=== PATIENT | male | born 1945 | race Caucasian/White ===

== ENCOUNTER 2018-01-01 03:59 | Observation (INO) | payer BC, MEDICARE ==
--- NOTE | 2018-01-01 04:28 | ERNOTE ---
Trauma/Assault HPI - General Stated Complaint: FALL Time Seen by Provider: 01/01/18 04:07 Source: patient Exam Limitations: clinical condition - Immun/Allergies/Home Medications Immunizations: IMMUNIZATION HX Immunizations Up to Date Yes History of Influenza Vaccine Yes Hx Pneumococcal Vaccination Yes Allergies/Adverse Reactions: Allergies mometasone furoate [From Nasonex] Adverse Reaction (Mild, Verified 01/01/18 06: 20) increased eye pressure acetaminophen [From Percocet] Adverse Reaction (Verified 01/01/18 06:20) oxycodone [From Percocet] Adverse Reaction (Verified 01/01/18 06:20) Steroids Adverse Reaction (Uncoded 01/01/18 06:20) "Puts me into AFIB" Home Medications: HOME MEDICATIONS Metoprolol Tartrate [Lopressor] 50 mg PO BID 02/24/12 [Last Taken Unknown] Atorvastatin Calcium [Lipitor] 40 mg PO HS 05/15/16 [Last Taken Unknown] albuterol sulfate 2.5 mg/3 mL (0.083 %) solution for nebulization 2.5 mg IH Q4H 10/09/17 [Last Taken Unknown] albuterol sulfate HFA 90 mcg/actuation aerosol inhaler 1 puff IH Q4H g [Last Taken Unknown] alprazolam 0.25 mg tablet See Label Instructions PO .COMPLEX 10/09/17 [Last Taken Unknown] apixaban 5 mg tablet 5 mg PO BID tab 10/09/17 [Last Taken Unknown] bumetanide 1 mg tablet See Label Instructions PO .COMPLEX tab 10/09/17 [Last Taken Unknown] cholecalciferol (vitamin D3) 5,000 unit capsule 5,000 unit PO DAILY 10/09/17 [ Last Taken Unknown] ipratropium-albuterol 0.5 mg-3 mg(2.5 mg base)/3 mL nebulization soln 3 ml IH Q8H 10/09/17 [Last Taken Unknown] montelukast 10 mg tablet 10 mg PO QPM 10/09/17 [Last Taken Unknown] tiotropium 2.5 mcg-olodaterol 2.5 mcg/actuation mist for inhalation 2 puff IH DAILY 10/09/17 [Last Taken Unknown] nebulizer accessories kit See Dose Instructions .ROUTE .MEDSUPPLY #1 ea [Last Taken Unknown] Albuterol Sulfate [Proair Hfa] 1 - 2 puff IH Q4H PRN 12/10/17 [Last Taken Unknown] Metolazone [Zaroxolyn] 2.5 mg PO DAILY 12/10/17 [Last Taken Unknown] Potassium Chloride [K-Dur] 20 meq PO TID 12/10/17 [Last Taken Unknown] azithromycin 250 mg tablet See Label Instructions PO .COMPLEX #6 tab 12/29/17 [ Last Taken Unknown] - History of Present Illness Narrative: Pt states he got up to go to the bathroom. He leaned over and hit his head on the wall then stood back up and then found himself on the bathroom floor. He states he has head and right rib pain Location Occurred: Reports: home Pain Location: Reports: head, back - upper Method of Injury: Reports: fall Severity: moderate Modifying Factors - (Improves): Reports: immobilization Modifying Factors - (Worsens): Reports: movement Loss of Consciousness: Reports: unsure. Denies: remembers the event Associated Symptoms - Trauma: Denies: headache, confusion Review of Systems - Review of Systems Constitutional: Absent: recent illness EYE: Present: other - blind in left eye for 45 years. Absent: vision changes ENT: Absent: ear discharge, nose congestion, nasal drainage Respiratory: Absent: shortness of breath Cardiology: Present: See HPI, chest pain Gastrointestinal/Abdominal: Absent: nausea Musculoskeletal: Present: back pain - ribs Neurological: Absent: dizziness/light-headedness, numbness, tingling Hematologic/Lymphatic: Present: easy bruising, easy bleeding Medical History (Last Reviewed 01/01/18 @ 04:26 by Willie Tamayo DO) COPD (chronic obstructive pulmonary disease) (Chronic) Hypokalemia (Chronic) RONQUILLO (dyspnea on exertion) (Chronic) Neck pain (Chronic) Atrial fibrillation Blindness, legal CAD (coronary artery disease) CHF (congestive heart failure) COPD (chronic obstructive pulmonary disease) Carpal tunnel syndrome DVT (deep venous thrombosis) Diverticulitis Early satiety Hyperlipidemia Hypertension Hypovitaminosis D Myocardial infarction Prostate neoplasm Sleep apnea Spondylosis Stenosis of right subclavian artery Subclavian arterial stenosis Surgical History: Surgical History (Last Reviewed 01/01/18 @ 04:11 by Ludmila Lamb) H/O colonoscopy H/O nasal septoplasty H/O prostatectomy H/O shoulder surgery History of arthroscopic procedure on shoulder History of cardioversion History of carpal tunnel release History of colon resection Hx of radical excision of skin lesion S/P triple vessel bypass excision of sebacous cyst hemorrhoidal banding incision and debridement Family History: Family History (Last Reviewed 01/01/18 @ 04:11 by Ludmila Lamb) Brother Diabetes Father Black lung Mother Diabetes Heart disease Sister No problems noted. Social History: Preferred Language Pashto Smoking Status Former smoker Abuse History No History of abuse Psych History No pertinent hx Alcohol Use occasionally Drug Use none Physical Exam - Physical Exam General Appearance: Present: wd/wn, alert, no apparent distress Head Exam: Present: contusions - right methodist Eye Exam: PERRL: right, Abnormal pupil: left - due to old injury Ears, Nose, Throat: Present: normal ENT inspection Neck: Present: normal inspection, nontender Respiratory: Present: no respiratory distress, normal breath sounds, no accessory muscle use, lungs clear, chest tenderness - right Cardiovascular/Chest: Present: regular rate, rhythm, no murmur Gastrointestinal/Abdominal: Present: normal bowel sounds, nontender, nondistended, soft Back Exam: Present: normal inspection, no vertebral tenderness Extremity Exam: Present: normal inspection, normal range of motion, no edema Neurological Exam: Present: alert, oriented, normal mood/affect, no motor/ sensory deficits Skin Exam: Present: normal color, warm/dry Lymphatic Exam: Present: no adenopathy Detailed Trauma Exam Best Eye Response ([place]): (4) open spontaneously Best Verbal Response ([place]): (5) oriented Best Motor Response ([place]): (6) obeys commands [place] Total: 15 - C-Spine cleared by: Neg C-spine CT & exam - T, L-Spine cleared by: Neg hx and exam - Long Board: Back visualized ED Progress - Vital Signs Vital Signs: Vital Signs 01/01/18 04:05 Temperature 36 C Pulse Rate 82 Respiratory Rate 18 Blood Pressure 122/83 O2 Sat by Pulse Oximetry 93 - EKG EKG: atrial fibrillation, RBBB - incomplete, nonspecific ST T wave changes - X-Ray X-Ray #1 X-Ray: chest Interpretation: Interp. by wy X-ray Comments: Small pneumothorax seen at the apex of the right lung. No infiltrate or effusion noted. X-Ray #2 X-Ray: ribs Interpretation: Interp. by me X-ray Comments: Moderately displaced rib fractures of the lateral right 6,7,8th ribs. - CT/Ultrasound CT/Ultrasound Narrative: CT c-spine: no acute c-spine fracture multilevel degenerative disease CT head without: artifact due to motion. chronic small vessel ischemic changes asymmetric prominence of the right transverse sinus motion limited exam without definite evidence for acute intracranial hemorrhage or mass effect. CT chest: Rib fractures right 6,7,8 small right pneumothorax Trace right pleural fluid, possibly hemorrhage - Progress/Reassessment Chief Complaint: Fall Progress Note-Subjective: 01/01/18 06:[address] Curiel and he agrees to come see and evaluate for chest tube. 01/01/18 07:07 Dr. Curiel has seen the patient and we reviewed the CT and X-rays. Dr. Curiel will admit the patient for observation. Departure Clinical Impression: Ribs, multiple fractures Qualifiers: Encounter type: initial encounter Fracture type: closed Laterality: right Qualified Code(s): S22.41XA - Multiple fractures of ribs, right side, initial encounter for closed fracture - Departure Disposition: Still a patient Condition: Good Referrals: Bello Ortez MD [Primary Care Provider] - Critical Care Time - Critical Care Critical Time Spent:: No
[2018-01-01] MEDS ORDERED: MORPHINE SULFATE 2 MG/ML DISP.SYRIN IV ONE (05:01)
[2018-01-01] MEDS ORDERED: ONDANSETRON HCL/PF 2 MG/ML VIAL IV ONE (05:01)
[2018-01-01] MEDS ORDERED: ONDANSETRON HCL/PF 2 MG/ML VIAL ONE (05:02)
[2018-01-01] MEDS ORDERED: MORPHINE SULFATE 4 MG/ML SYRG ONE (05:02)
[2018-01-01] MEDS ORDERED: HYDROmorphone HCL 1 MG/ML DISP.SYRIN IV ONE ×2 (06:06→06:42)
[2018-01-01] MEDS ORDERED: HYDROmorphone HCL 1 MG/ML DISP.SYRIN ONE (06:12)
[2018-01-01] MEDS ORDERED: ALBUTEROL SULFATE IH PRN (07:23)
[2018-01-01] MEDS ORDERED: KETOROLAC TROMETHAMINE 15 MG/ML VIAL IV ONE (07:29)
[2018-01-01] MEDS ORDERED: ALBUTEROL SULFATE 2.5 MG IH SCH (07:30)
[2018-01-01] MEDS: ALBUTEROL SULFATE 2.5 MG/0.5 ML VIAL.NEB IH SCH ×3 (08:29→15:04)
[2018-01-01] MEDS: ALBUTEROL SULFATE/IPRATROPIUM 3 ML NEBU IH SCH ×2 (08:29→15:02)
[2018-01-01] MEDS: POTASSIUM CHLORIDE 20 MEQ TABLET.SA PO SCH ×2 (08:38→13:39)
[2018-01-01] MEDS ORDERED: APIXABAN 5 MG TABLET PO SCH (09:00)
[2018-01-01] MEDS ORDERED: AZITHROMYCIN 250 MG TABLET PO SCH (09:00)
[2018-01-01] MEDS ORDERED: METOPROLOL TARTRATE 50 MG TABLET PO SCH (09:00)
[2018-01-01] MEDS ORDERED: METOLAZONE 2.5 MG TABLET PO SCH (09:00)
[2018-01-01] MEDS ORDERED: CHOLECALCIFEROL 5,000 UNIT TABLET PO SCH (09:00)
[2018-01-01] MEDS ORDERED: NON-FORMULARY 1 DOSE DOSE (Tiotropium Br/Olodaterol Hcl [Stiolto Respimat Inhal Spray] 2 P IH SCH (09:00)
[2018-01-01] MEDS ORDERED: BUMETANIDE 1 MG TABLET PO SCH ×2 (09:00→17:00)
--- NOTE | 2018-01-01 16:05 | HP ---
Chief Complaint - Chief Complaint Date of Service: 01/01/18 Time of Service: 07:30 Chief Complaint: Short of breath after fall History of Present Illness: He tripped and fell at 2AM and struck his right chest. He has rib pain and is a little more short of breath. CXR and CT scan teresa fractured right ribs and a small pneumothorax. Medical History (Last Reviewed 01/01/18 @ 15:55 by Ora Curiel MD) COPD (chronic obstructive pulmonary disease) (Chronic) Hypokalemia (Chronic) RONQUILLO (dyspnea on exertion) (Chronic) Neck pain (Chronic) Atrial fibrillation Blindness, legal CAD (coronary artery disease) CHF (congestive heart failure) COPD (chronic obstructive pulmonary disease) Carpal tunnel syndrome DVT (deep venous thrombosis) Diverticulitis Early satiety Hyperlipidemia Hypertension Hypovitaminosis D Myocardial infarction Prostate neoplasm Sleep apnea Spondylosis Stenosis of right subclavian artery Subclavian arterial stenosis Surgical History: Surgical History (Last Reviewed 01/01/18 @ 15:55 by Ora Curiel MD) H/O colonoscopy H/O nasal septoplasty H/O prostatectomy H/O shoulder surgery History of arthroscopic procedure on shoulder History of cardioversion History of carpal tunnel release History of colon resection Hx of radical excision of skin lesion S/P triple vessel bypass excision of sebacous cyst hemorrhoidal banding incision and debridement Family History: Family History (Last Reviewed 01/01/18 @ 15:55 by Ora Curiel MD) Brother Diabetes Father Black lung Mother Diabetes Heart disease Sister No problems noted. 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 Smoking Status Former smoker Have you smoked in the past 12 No months Abuse History No History of abuse Psych History No pertinent hx Alcohol Use occasionally Drug Use none Review Of Systems (GEN) - Review of Systems Generalized/Overall Review: Present: Fatigue EENTM: Present: No Symptoms Reported Respiratory: Present: Shortness of Breath, Other - rib pain Cardiac: Absent: Palpitations, Syncope Abdominal: Present: No Symptoms Reported Genitourinary: Present: No Symptoms Reported Musculoskeletal: Present: No Symptoms Reported Neurological: Present: No Symptoms Reported Skin: Present: No Symptoms Reported Immunizations: IMMUNIZATION HX Immunizations Up to Date Yes History of Influenza Vaccine Yes Hx Pneumococcal Vaccination Yes Allergies/Adverse Reactions: Allergies Allergy/AdvReac Type Severity Reaction Status Date / Time mometasone furoate AdvReac Mild increased Verified 01/01/18 06:20 [From Nasonex] eye pressure acetaminophen [From Percocet] AdvReac Verified 01/01/18 09:04 oxycodone [From Percocet] AdvReac Verified 01/01/18 09:04 Home Medications: HOME MEDICATIONS Metoprolol Tartrate [Lopressor] 50 mg PO BID 02/24/12 [Last Taken Unknown] Atorvastatin Calcium [Lipitor] 40 mg PO HS 05/15/16 [Last Taken Unknown] albuterol sulfate 2.5 mg/3 mL (0.083 %) solution for nebulization 2.5 mg IH Q4H PRN 10/09/17 [Last Taken Unknown] alprazolam 0.25 mg tablet 0.25 - 0.5 mg PO HS PRN 10/09/17 [Last Taken Unknown] apixaban 5 mg tablet 5 mg PO BID tab 10/09/17 [Last Taken Unknown] bumetanide 1 mg tablet 3 mg PO 0530,1200 tab 10/09/17 [Last Taken Unknown] cholecalciferol (vitamin D3) 5,000 unit capsule 5,000 unit PO DAILY 10/09/17 [ Last Taken Unknown] ipratropium-albuterol 0.5 mg-3 mg(2.5 mg base)/3 mL nebulization soln 3 ml IH TID PRN 10/09/17 [Last Taken Unknown] montelukast 10 mg tablet 10 mg PO QPM PRN 10/09/17 [Last Taken Unknown] tiotropium 2.5 mcg-olodaterol 2.5 mcg/actuation mist for inhalation 2 puff IH DAILY 10/09/17 [Last Taken Unknown] nebulizer accessories kit See Dose Instructions .ROUTE .MEDSUPPLY #1 ea [Last Taken Unknown] Albuterol Sulfate [Proair Hfa] 1 - 2 puff IH Q4H PRN 12/10/17 [Last Taken Unknown] Metolazone [Zaroxolyn] 2.5 mg PO DAILY PRN 12/10/17 [Last Taken Unknown] Potassium Chloride [K-Dur] 20 meq PO TID 12/10/17 [Last Taken Unknown] azithromycin 250 mg tablet See Label Instructions PO .COMPLEX #6 tab 12/29/17 [ Last Taken Unknown] Exam - Exam Vital Signs: Vital Signs - Last Taken Selected Entries 01/01/18 07:17 Pulse Rate 88 Respiratory Rate 18 Blood Pressure 112/60 Blood Pressure Mean 77 O2 Sat by Pulse Oximetry 95 Oxygen Flow Rate 2 Constitutional: Present: Alert, Oriented x3, Cooperative, Well developed, Moderate distress ENT Exam: Present: normal ENT inspection, hearing grossly normal Eye Exam: bilateral eye: normal inspection Neck: Present: normal inspection Back Exam: Present: normal inspection Respiratory: Present: lungs clear, other - Increased AP diamter and bronchovesicular breath sounds, no crepitus tender over right lateral ribs Abdomen: Present: soft, nontender /Rectal: Present: Exam deferred Extremity: Present: normal range of motion, normal inspection Skin Exam: Present: normal color, other - echymosis Neurologic: 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: 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 nml as tested, no motor/sensory deficits Appearance: Present: appropriate appearance, appropriate insight Eye contact: Present: cooperative, good eye contact Thoughts: Present: normal thought pattern Diagnostic Studies: CXR and CT show right rib fractures and small pneumothorax Assessment/Plan - Assessment/Plan (1) Ribs, multiple fractures Problem: Acute Qualifiers: Encounter type: initial encounter Fracture type: closed Laterality: right Qualified Code(s): S22.41XA - Multiple fractures of ribs, right side, initial encounter for closed fracture (2) COPD (chronic obstructive pulmonary disease) Problem: Chronic Qualifiers: (3) Pneumothorax on right Assessment: He is on eloquis and this complicates pippa aspiration or chest tube placement Needs observation to ensure that pneumothorax does not progress Will monitor closely and recheck CXR at noon. Continue usual meds. Clear liquids Problem: Acute
--- NOTE | 2018-01-01 16:11 | DS ---
(1) Ribs, multiple fractures Problem: Acute Qualifiers: Encounter type: initial encounter Fracture type: closed Laterality: right Qualified Code(s): S22.41XA - Multiple fractures of ribs, right side, initial encounter for closed fracture (2) COPD (chronic obstructive pulmonary disease) Problem: Chronic Qualifiers: (3) Pneumothorax on right Problem: Acute Description of Stay: Monitored closely and 02 weaned successfully. Repeat CXR showed decrease in size of pneumothorax and the patient felt much better. Procedures Performed: none Discharge Location: Home Disposition: Home self-care Condition: Good Face to Face Encounter completed per [facility] Guidelines: Yes Discharge Activity: Activity as tolerated Discharge Diet: General/regular food Referrals: Bello Ortez MD [Primary Care Provider] - Complete Home Medications List: Complete Home Medication List: Metoprolol Tartrate [Lopressor] 50 mg PO BID 02/24/12 Atorvastatin Calcium [Lipitor] 40 mg PO HS 05/15/16 albuterol sulfate 2.5 mg/3 mL (0.083 %) solution for nebulization 2.5 mg IH Q4H PRN 10/09/17 alprazolam 0.25 mg tablet 0.25 - 0.5 mg PO HS PRN 10/09/17 apixaban 5 mg tablet 5 mg PO BID tab 10/09/17 bumetanide 1 mg tablet 3 mg PO 0530,1200 tab 10/09/17 cholecalciferol (vitamin D3) 5,000 unit capsule 5,000 unit PO DAILY 10/09/17 ipratropium-albuterol 0.5 mg-3 mg(2.5 mg base)/3 mL nebulization soln 3 ml IH TID PRN 10/09/17 montelukast 10 mg tablet 10 mg PO QPM PRN 10/09/17 tiotropium 2.5 mcg-olodaterol 2.5 mcg/actuation mist for inhalation 2 puff IH DAILY 10/09/17 nebulizer accessories kit See Dose Instructions .ROUTE .MEDSUPPLY #1 ea Albuterol Sulfate [Proair Hfa] 1 - 2 puff IH Q4H PRN 12/10/17 Metolazone [Zaroxolyn] 2.5 mg PO DAILY PRN 12/10/17 Potassium Chloride [K-Dur] 20 meq PO TID 12/10/17 azithromycin 250 mg tablet See Label Instructions PO .COMPLEX #6 tab 12/29/17
[2018-01-01 16:37] VITALS: BP 120/62
[2018-01-01] MEDS ORDERED: MONTELUKAST SODIUM 10 MG TABLET PO SCH (17:00)
[2018-01-01] MEDS ORDERED: ROSUVASTATIN CALCIUM 20 MG TABLET PO SCH (21:00)
[2018-01-01] MEDS ORDERED: ALPRAZolam 0.25 MG TABLET PO SCH (21:00)
== END 2018-01-01 17:00 | disposition home or self-care (01) ==
LOC: ER 03:59 → MS 03:59
PROVIDERS: ADMIT Surgery; ATTEND Surgery
DX: S27.0XXA Traumatic pneumothorax, initial encounter; I48.91 Unspecified atrial fibrillation; S22.49XA Multiple fractures of ribs, unspecified side, initial encounter for closed fracture; Z87.891 Personal history of nicotine dependence; J44.9 Chronic obstructive pulmonary disease, unspecified
CPT/HCPCS: 70450; 71010; 71045; 71100; 71250; 72125; 93005; 94640; 94664; 96374; 96375; 96376; 99284; G0378; J2405

== ENCOUNTER 2018-02-08 17:50 | Observation (INO) | payer BC, MEDICARE ==
--- NOTE | 2018-02-08 18:07 | ERNOTE ---
Medical Problem HPI - Narrative Date of Service: 02/08/18 - General Chief Complaint: General Assessment Time Seen by Provider: 02/08/18 18:02 Source: patient Exam Limitations: no limitations - Immun/Allergies/Home Medications Immunizations: IMMUNIZATION HX Immunizations Up to Date Yes History of Influenza Vaccine Yes Hx Pneumococcal Vaccination Yes Allergies/Adverse Reactions: Allergies mometasone furoate [From Nasonex] Adverse Reaction (Mild, Verified 02/08/18 18:01) increased eye pressure acetaminophen [From Percocet] Adverse Reaction (Verified 02/08/18 18:01) makes him "looney" makes him "looney" oxycodone [From Percocet] Adverse Reaction (Verified 02/08/18 18:01) makes him "looney" makes him "looney" Home Medications: HOME MEDICATIONS Atorvastatin Calcium [Lipitor] 40 mg PO HS 05/15/16 [Last Taken Unknown] albuterol sulfate 2.5 mg/3 mL (0.083 %) solution for nebulization 2.5 mg IH Q4H PRN 10/09/17 [Last Taken Unknown] alprazolam 0.25 mg tablet 0.25 - 0.5 mg PO HS PRN 10/09/17 [Last Taken Unknown] apixaban 5 mg tablet 5 mg PO BID tab 10/09/17 [Last Taken 01/09/18] bumetanide 1 mg tablet 3 mg PO 0530,1200 tab 10/09/17 [Last Taken Unknown] cholecalciferol (vitamin D3) 5,000 unit capsule 5,000 unit PO DAILY 10/09/17 [Last Taken Unknown] ipratropium-albuterol 0.5 mg-3 mg(2.5 mg base)/3 mL nebulization soln 3 ml IH TID PRN 10/09/17 [Last Taken Unknown] tiotropium 2.5 mcg-olodaterol 2.5 mcg/actuation mist for inhalation 2 puff IH DAILY 10/09/17 [Last Taken Unknown] nebulizer accessories kit See Dose Instructions .ROUTE .MEDSUPPLY #1 ea 11/21/17 [Last Taken Unknown] Albuterol Sulfate [Proair Hfa] 1 - 2 puff IH Q4H PRN 12/10/17 [Last Taken Unknown] Metolazone [Zaroxolyn] 2.5 mg PO DAILY PRN 12/10/17 [Last Taken Unknown] Potassium Chloride [K-Dur] 20 meq PO TID 12/10/17 [Last Taken Unknown] docusate sodium 100 mg capsule 100 mg PO BID 01/13/18 [Last Taken Unknown] oxycodone-acetaminophen 5 mg-325 mg tablet 1 tab PO Q4H PRN #60 tab 01/13/18 [Last Taken Unknown] metoprolol tartrate 50 mg tablet 25 mg PO BID tab 02/03/18 [Last Taken Unknown] - Pain Score Pain Score #1 Pain Score: 4 - History of Present History Narrative: The patient is a 72 year old male who presents for right lateral chest pain and dyspnea which has been worse for 1 day. There are no associated symptoms. The patient reports pain to right lateral chest, 4/10. There are no alleviating factors. There are aggravating factors of exertion. Previous treatments have included: nebulizer treatments without improvement. The past medical history includes: right rib fractures, Afib, CAD, CHF, COPD, DVT, HTN, HLD, sleep apnea and hypokalemia. The social history is negative. The patient has had no ill contacts. Patient states that he had Duoneb [employer] without improvement. Patient was seen approximately 5 weeks ago for right rib fractures due to fall. Review of Systems - Review of Systems Constitutional: Present: fatigue. Absent: fever EYE: Present: no symptoms reported ENT: Present: sore throat. Absent: ear pain, nasal drainage Respiratory: Present: shortness of breath, cough Cardiology: Present: chest pain - chest wall pain Gastrointestinal/Abdominal: Present: diarrhea, abdominal pain. Absent: nausea, vomiting Genitourinary: Present: no symptoms reported Musculoskeletal: Present: no symptoms reported Skin: Present: no symptoms reported Neurological: Present: no symptoms reported Endocrine: Present: no symptoms reported Hematologic/Lymphatic: Present: no symptoms reported Psych: Present: no symptoms reported All Other Systems: All systems neg except as marked Medical History (Last Reviewed 02/08/18 @ 18:12 by TRAN Rivero) COPD (chronic obstructive pulmonary disease) (Chronic) Hypokalemia (Chronic) RONQUILLO (dyspnea on exertion) (Chronic) Neck pain (Chronic) Atrial fibrillation Blindness, legal left eye CAD (coronary artery disease) CHF (congestive heart failure) COPD (chronic obstructive pulmonary disease) Carpal tunnel syndrome DVT (deep venous thrombosis) Diverticulitis Early satiety Hyperlipidemia Hypertension Hypovitaminosis D Myocardial infarction Pneumothorax Prostate neoplasm Rib fracture Sleep apnea Spondylosis Stenosis of right subclavian artery Subclavian arterial stenosis Surgical History: Surgical History (Last Reviewed 02/08/18 @ 18:13 by TRAN Rivero) H/O colonoscopy H/O nasal septoplasty H/O prostatectomy H/O shoulder surgery History of arthroscopic procedure on shoulder History of cardioversion History of carpal tunnel release History of colon resection Hx of radical excision of skin lesion S/P triple vessel bypass excision of sebacous cyst hemorrhoidal banding incision and debridement r/t colon surgery H/O sigmoidoscopy Onset Date: ~01/09/18 Dr. Curiel Family History: Family History (Last Reviewed 02/08/18 @ 18:13 by TRAN Rivero) Brother Diabetes Father Black lung Mother Diabetes Heart disease Sister No problems noted. Social History: Preferred Language Syriac Smoking Status Former smoker Abuse History No History of abuse Psych History No pertinent hx Alcohol Use none Drug Use none (Last Updated 02/05/18 @ 09:14 by Ora Curiel MD) No Social History Section defined Physical Exam - Physical Exam General Appearance: Present: wd/wn, alert, mild distress, irritable Head Exam: Present: normal inspection Ears, Nose, Throat: Present: normal ENT inspection, pharyngeal erythema Neck: Present: normal inspection, lymphadenopathy (L) - anterior chain tenderness Respiratory: Present: chest tenderness - right lateral and anterior, decreased breath sounds, wheezing - expiratory to left mid and lower intermittent. Absent: accessory muscle use Cardiovascular/Chest: Present: no murmur, irregularly irregular Gastrointestinal/Abdominal: Present: normal bowel sounds, soft, distended Neurological Exam: Present: alert, oriented, normal mood/affect Skin Exam: Present: normal color, warm/dry ED Progress - Date and Time Seen: Date and Time: Pain medication offered to patient during ER stay and patient refuses due to difficulties with constipation. Care discussed with patient and . Discussed care with and plan for observation admission. Discussed abdominal distention with as he has seen patient during inpatient stay as well as follow up in clinic for colonic distention. Will initiate treatment for COPD exacerbation while monitoring due to elevated DDimer. 02/08/18 20:55 - Results and Orders Patient's Lab Results:: I have reviewed the patient's lab results. - Vital Signs Patient's Vital Signs:: I have reviewed the patient's vital signs. Vital Signs: Vital Signs 02/08/18 17:55 Temperature 36.4 C Pulse Rate 106 H Respiratory Rate 14 Blood Pressure 102/70 O2 Sat by Pulse Oximetry 95 - EKG EKG: atrial fibrillation - chronic EKG read: Reviewed by me - X-Ray X-Ray #1 X-Ray: chest Interpretation: Reviewed by me X-ray Comments: X-RAY REPORT ~[id number] RAD/Chest Single View *~ Exam Date: 02/08/2018 18:28 Ordering Physician: Twila Kraus History: Rib fractures. COPD. Trouble breathing. Dyspnea. History of atrial fibrillation. Congestive heart failure. Hypertension. Technique: Single AP view of the chest obtained. Two images utilized. Comparison: 01/01/2018 Findings: Heart size and vascularity appear within normal limits. Lung garcia show no focal infiltrates or effusions on this single view. Follow-up with PA and lateral views of the chest could be helpful. IMPRESSION: NO ACUTE CARDIOPULMONARY DISEASE IDENTIFIED. Electronically signed by Froy Omer M.D.. X-Ray #2 X-Ray: abdomen Interpretation: Reviewed by me X-ray Comments: X-RAY REPORT ~[id number] RAD/Abdomen Flat W/ Upright *~ Exam Date: 02/08/2018 18:45 Ordering Physician: Twila Kraus History: Abdominal distention. Dyspnea. Technique: Supine and upright views of the abdomen obtained. A total of 5 images utilized. Comparison: 02/02/2018 Findings: There are postsurgical changes in the pelvis. There are degenerative changes and a scoliotic lumbar spine. There are postoperative changes in the upper abdomen. There is a distended transverse colon. This is unchanged to less pronounced than the previous study. No free air identified. IMPRESSION: DISTENDED TRANSVERSE COLON LESS PRONOUNCED THAN THE PREVIOUS STUDY. Electronically signed by Froy Omer M.D.. - Progress/Reassessment Chief Complaint: General Assessment Departure Clinical Impression: Chronic a-fib, Elevated d-dimer, Renal insufficiency COPD (chronic obstructive pulmonary disease) Qualifiers: COPD type: unspecified COPD Qualified Code(s): J44.9 - Chronic obstructive pulmonary disease, unspecified - Departure Disposition: Still a patient Condition: Stable
[2018-02-08] MEDS ORDERED: ALBUTEROL SULFATE 2.5 MG/0.5 ML VIAL.NEB IH ONE ×2 (18:31→18:54)
[2018-02-08 18:33] LABS: Hematocrit 47.3 % (42.0-52.0); Hemoglobin 15.8 gm/dL (13.5-18.0); Mean Cell Volume 93.8 fl (78-100); Mean Corpuscular Hemoglobin 31.3 pg (27-31); Mean Corpuscular Hgb Conc 33.4 g/dl (32-36); Mean Platelet Volume 9.4 fl (8-11.3); Neutrophil # 6.9 K/mm3 (1.3-6.0); Neutrophil % 68.3 % (42-75.0); Platelet Count 231 K/mm3 (150-450); Red Blood Count 5.04 M/mm3 (4.7-6.0); Red Cell Distribution Width 14.4 % (11.5-14.0); White Blood Count 10.1 K/mm3 (4.0-10.5)
[2018-02-08 18:54] LABS: BUN/Creatinine Ratio 9.9 (9.0-21.6); Carbon Dioxide 30.7 mmol/L (24-32.6); Potassium 4.5 mmol/L (3.4-4.6)
[2018-02-08 18:55] LABS: Albumin * 3.7 gm/dl (3.4-5.0); Anion Gap 9.8 mmol/L (6.8-13.8); Bilirubin, Total 0.4 mg/dL (0.0-1.1); Ca. Corrected For Albumin 8.6 mg/dL (8.4-10.2); Calcium * 8.7 mg/dL (7.9-10.9); Total Protein 7.2 gm/dL (6.2-8.2)
[2018-02-08] MEDS ORDERED: DOXYCYCLINE HYCLATE 100 MG TABLET PO ONE (19:39)
[2018-02-08] MEDS ORDERED: METHYLPREDNISOLONE SOD SUCC/PF 125 MG/2 ML VIAL IV ONE (19:39)
[2018-02-08] MEDS ORDERED: METHYLPREDNISOLONE SOD SUCC/PF 125 MG/2 ML VIAL ONE (19:44)
[2018-02-08] MEDS ORDERED: DOXYCYCLINE HYCLATE 100 MG TABLET ONE (19:44)
[2018-02-08] MEDS ORDERED: ALBUTEROL SULFATE/IPRATROPIUM 3 ML NEBU IH PRN ×2 (20:18→20:24)
[2018-02-08] MEDS ORDERED: ALPRAZolam 0.25 MG TABLET PO PRN (20:24)
[2018-02-08] MEDS ORDERED: METOPROLOL TARTRATE 50 MG TABLET PO SCH (21:00)
[2018-02-08] MEDS ORDERED: ALBUTEROL SULFATE 2.5 MG/0.5 ML VIAL.NEB IH PRN (21:15)
[2018-02-08] MEDS ORDERED: ROSUVASTATIN CALCIUM 20 MG TABLET PO SCH (21:30)
[2018-02-08] MEDS: DOCUSATE SODIUM 100 MG CAPSULE PO SCH (21:33)
[2018-02-08] MEDS: APIXABAN 5 MG TABLET PO SCH (21:33)
[2018-02-08] MEDS: ACETAMINOPHEN 500 MG TABLET PO PRN (22:21)
[2018-02-08] MEDS ORDERED: LIDOCAINE 1 PATCH ADH..PATCH TP ONE (22:24)
[2018-02-08] MEDS ORDERED: LIDOCAINE 1 PATCH ADH..PATCH TP SCH (22:30)
[2018-02-09] MEDS: ACETAMINOPHEN 500 MG TABLET PO PRN ×2 (04:24→10:30)
[2018-02-09 05:43] LABS: Albumin * 3.6 gm/dl (3.4-5.0); Anion Gap 12.1 mmol/L (6.8-13.8); BUN/Creatinine Ratio 10.6 (9.0-21.6); Bilirubin, Total 0.7 mg/dL (0.0-1.1); Ca. Corrected For Albumin 8.9 mg/dL (8.4-10.2); Calcium * 8.9 mg/dL (7.9-10.9); Carbon Dioxide 26.9 mmol/L (24-32.6); Total Protein 6.6 gm/dL (6.2-8.2)
--- NOTE | 2018-02-09 07:26 | HP ---
Chief Complaint - Chief Complaint Date of Service: 02/09/18 Time of Service: 07:24 Chief Complaint: Worsening SOB due to abdominal distention. History of Present Illness: Pt. is a 72yo WM with PMH significant for COPD and abdominal distension due to colon gas, was seen in clinic friday and evaluated for worsening SOB and abdominal distension. Xray at that time showed improvement from previous and so he was sent home with precautions to go to ER if sx worsened, which they did. He states his breathing issues were due to the abdominal distension, but he was worked up for other possibilities and then admitted due to concern for COPD exacerbation and possible PE due to elevated D-dimer. He does have afib and has been on eliquis for some time for this and has been compliant with taking it. He denies unilateral leg swelling, claudications or CP, F/C or productive cough or hemoptysis. He states the am that I saw him he feels well enough to go home and states he can deal with everything at home. He does not wish to have CT done, especially in light of his elevated Cr. Medical History (Last Reviewed 02/08/18 @ 23:12 by Suzie Weston RN) COPD (chronic obstructive pulmonary disease) (Chronic) Hypokalemia (Chronic) RONQUILLO (dyspnea on exertion) (Chronic) Neck pain (Chronic) Atrial fibrillation Blindness, legal left eye CAD (coronary artery disease) CHF (congestive heart failure) COPD (chronic obstructive pulmonary disease) Carpal tunnel syndrome DVT (deep venous thrombosis) Diverticulitis Early satiety Hyperlipidemia Hypertension Hypovitaminosis D Myocardial infarction Pneumothorax Prostate neoplasm Rib fracture Sleep apnea Spondylosis Stenosis of right subclavian artery Subclavian arterial stenosis Surgical History: Surgical History (Last Reviewed 02/08/18 @ 23:12 by Suzie Weston RN) H/O colonoscopy H/O nasal septoplasty H/O prostatectomy H/O shoulder surgery History of arthroscopic procedure on shoulder History of cardioversion History of carpal tunnel release History of colon resection Hx of radical excision of skin lesion S/P triple vessel bypass excision of sebacous cyst hemorrhoidal banding incision and debridement r/t colon surgery H/O sigmoidoscopy Onset Date: ~01/09/18 Dr. Curiel Family History: Family History (Last Reviewed 02/08/18 @ 23:12 by Suzie Weston RN) Brother Diabetes Father Black lung Mother Diabetes Heart disease Sister No problems noted. Social History: Patient Lives/Resources With Spouse Utilized Occupation retired Preferred Language Nicaraguan Do you have any restoration or Yes: 1st Religious cultural preference? Smoking Status Former smoker Have you smoked in the past 12 No months Do you dip or chew tobacco No Abuse History No History of abuse Psych History No pertinent hx Alcohol Use none Drug Use none (Last Updated 02/05/18 @ 09:14 by Ora Curiel MD) No Social History Section defined Review Of Systems (GEN) - Review of Systems Generalized/Overall Review: Present: Weakness, Fatigue. Absent: Chills, Fever, Malaise EENTM: Present: No Symptoms Reported Respiratory: Present: Cough, Shortness of Breath. Absent: Orthopnea, Stridor, Wheezing Cardiac: Absent: Chest Pain, Edema, Palpitations, Syncope Abdominal: Present: Nausea, Abdominal Pain, Diarrhea. Absent: Vomiting, Hematemesis, Constipation, Melena, Bright blood from rectum Genitourinary: Present: No Symptoms Reported Musculoskeletal: Present: No Symptoms Reported Neurological: Present: No Symptoms Reported Skin: Present: No Symptoms Reported Endocrine: Present: No Symptoms Reported Immunizations: IMMUNIZATION HX Immunizations Up to Date Yes History of Influenza Vaccine Yes Hx Pneumococcal Vaccination Yes Allergies/Adverse Reactions: Allergies Allergy/AdvReac Type Severity Reaction Status Date / Time mometasone furoate AdvReac Mild increased Verified 02/08/18 22:49 [From Nasonex] eye pressure acetaminophen [From Percocet] AdvReac makes him Verified 02/08/18 18:01 "looney" oxycodone [From Percocet] AdvReac makes him Verified 02/08/18 22:49 "looney" Home Medications: HOME MEDICATIONS Atorvastatin Calcium [Lipitor] 40 mg PO HS 05/15/16 [Last Taken 02/08/18 16:30] albuterol sulfate 2.5 mg/3 mL (0.083 %) solution for nebulization 2.5 mg IH Q4H PRN 10/09/17 [Last Taken Unknown] alprazolam 0.25 mg tablet 0.25 - 0.5 mg PO HS PRN 10/09/17 [Last Taken Unknown] apixaban 5 mg tablet 5 mg PO BID tab 10/09/17 [Last Taken 02/08/18 16:30] bumetanide 1 mg tablet 3 mg PO 0530,1200 tab 10/09/17 [Last Taken 02/08/18 16:30] cholecalciferol (vitamin D3) 5,000 unit capsule 5,000 unit PO DAILY 10/09/17 [Last Taken 02/08/18 16:30] ipratropium-albuterol 0.5 mg-3 mg(2.5 mg base)/3 mL nebulization soln 3 ml IH TID PRN 10/09/17 [Last Taken Unknown] tiotropium 2.5 mcg-olodaterol 2.5 mcg/actuation mist for inhalation 2 puff IH DAILY 10/09/17 [Last Taken 02/08/18 05:00] nebulizer accessories kit See Dose Instructions .ROUTE .MEDSUPPLY #1 ea 11/21/17 [Last Taken Unknown] Albuterol Sulfate [Proair Hfa] 1 - 2 puff IH Q4H PRN 12/10/17 [Last Taken Unknown] Metolazone [Zaroxolyn] 2.5 mg PO DAILY PRN 12/10/17 [Last Taken 02/08/18 16:30] Potassium Chloride [K-Dur] 20 meq PO TID 12/10/17 [Last Taken 02/08/18 16:30] docusate sodium 100 mg capsule 100 mg PO BID 01/13/18 [Last Taken 02/08/18 16:30] oxycodone-acetaminophen 5 mg-325 mg tablet 1 tab PO Q4H PRN #60 tab 01/13/18 [Last Taken Unknown] metoprolol tartrate 50 mg tablet 25 mg PO BID tab 02/03/18 [Last Taken 02/08/18 16:30] Albuterol Sulfate/Ipratropium [Duoneb 2.5-0.5MG/3ML Soln] 3 ml IH Q6H PRN nebu 02/09/18 [Last Taken Unknown] Lidocaine [Lidoderm 5%] 1 patch TP 2230 adh..patch 02/09/18 [Last Taken Unknown] Nystatin 500,000 unit PO QID #200 oral.susp 02/09/18 [Last Taken Unknown] azithromycin 500 mg tablet 500 mg PO 3XW #9 tab 02/09/18 [Last Taken Unknown] spironolactone 100 mg tablet 100 mg PO BID #60 tab 02/09/18 [Last Taken Unknown] Exam - Exam Vital Signs: Vital Signs - Last Taken Temp 37.1 C 02/08/18 20:37 Pulse 88 02/08/18 20:37 Resp 16 02/08/18 20:37 BP 132/78 02/08/18 20:37 Pulse Ox 96 02/08/18 20:37 Constitutional: Present: Alert, Oriented x3, Cooperative, Mild distress ENT Exam: Present: hearing grossly normal Neck: Present: full range of motion, supple, normal inspection Back Exam: Present: no CVA tenderness Respiratory: Present: chest non-tender, lungs clear, normal breath sounds, no respiratory distress, no accessory muscle use, expiration (prolonged) Cardiovascular/Chest: Present: irregularly irregular Abdomen: Present: no hepatospenomegaly, tender, distended, hypoactive. Absent: guarding, rigidity Extremity: Present: normal range of motion, non-tender, normal inspection, no pedal edema, no calf tenderness Skin Exam: Present: normal color, warm/dry, skin rash Neurologic: Present: glove cuffer II-XII nml as tested, normal cerebellar test, normal mood/affect, oriented x 3 Appearance: Present: appropriate appearance, appropriate insight, neat Eye contact: Present: cooperative, good eye contact, normal speech Thoughts: Present: normal thought pattern, no apparent hallucination Diagnostic Studies: Abnormal Lab Results 02/08/18 02/08/18 02/08/18 Range/Units 18:26 18:26 18:31 MCH 31.3 H (27-31) pg RDW 14.4 H (11.5-14.0) % Lymphocytes % 17.0 L (20-51) % Monocytes % 9.5 H (0.0-9) % Eosinophils % 4.2 H (0.0-3.0) % Neutrophils # 6.9 H (1.3-6.0) K/mm3 D-Dimer 1.24 H (0.19-0.49) ug/mL Potassium (3.4-4.6) mmol/L Creatinine 1.92 H (0.4-1.4) mg/dL Est GFR (Non-Af Amer) 37 L (60-130) mL/min Random Glucose (70-110) mg/dL ALT 16 L (19-67) U/L B-Natriuretic Peptide 1646 H (5-350) pg/mL 02/09/18 Range/Units 05:20 MCH (27-31) pg RDW (11.5-14.0) % Lymphocytes % (20-51) % Monocytes % (0.0-9) % Eosinophils % (0.0-3.0) % Neutrophils # (1.3-6.0) K/mm3 D-Dimer (0.19-0.49) ug/mL Potassium 5.0 H (3.4-4.6) mmol/L Creatinine 1.70 H (0.4-1.4) mg/dL Est GFR (Non-Af Amer) 42 L (60-130) mL/min Random Glucose 171 H D (70-110) mg/dL ALT (19-67) U/L B-Natriuretic Peptide (5-350) pg/mL Laboratory Results WBC 10.1 K/mm3 (4.0-10.5) 02/08/18 18: RBC 5.04 M/mm3 (4.7-6.0) 02/08/18 18:26 Hgb 15.8 gm/dL (13.5-18.0) 02/08/18 18: Hct 47.3 % (42.0-52.0) 02/08/18 18: MCV 93.8 fl (78-100) 02/08/18 18: MCH 31.3 pg (27-31) H 02/08/18 18: MCHC 33.4 g/dl (32-36) 02/08/18 18: RDW 14.4 % (11.5-14.0) H 02/08/18 18:26 Plt Count 231 K/mm3 (150-450) 02/08/18 18: MPV 9.4 fl (8-11.3) 02/08/18 18: Immature Gran % (Auto) 0.20 % (0.001-0.429) 02/08/18 18: Immature Gran # (Auto) 0.02 K/mm3 (0.000-0.0310) 02/08/18 18: Neutrophils % 68.3 % (42-75.0) 02/08/18 18: Lymphocytes % 17.0 % (20-51) L 02/08/18 18:26 Monocytes % 9.5 % (0.0-9) H 02/08/18 18:26 Eosinophils % 4.2 % (0.0-3.0) H 02/08/18 18: Basophils % 0.8 % (0.0-1.0) 02/08/18 18:26 Nucleated RBC % 0.0 k/mm3 (0-1) 02/08/18 18:26 Neutrophils # 6.9 K/mm3 (1.3-6.0) H 02/08/18 18:26 Lymphocytes # 1.72 k/mm3 (1.5-3.5) 02/08/18 18: Monocytes # 1.0 k/mm3 (0.0-1.0) 02/08/18 18: Eosinophils # 0.4 k/mm3 (0.0-0.7) 02/08/18 18: Absolute Basophils 0.1 k/mm3 (0.0-0.1) 02/08/18 18:26 D-Dimer 1.24 ug/mL (0.19-0.49) H 02/08/18 18:31 Sodium 136 mmol/L (132-142) 02/09/18 05:20 Plasma Sodium 137 mmol/L (130-142) 02/09/18 05:20 Potassium 5.0 mmol/L (3.4-4.6) H 02/09/18 05:20 Chloride 102 mmol/L (97-106) 02/09/18 05:20 Carbon Dioxide 26.9 mmol/L (24-32.6) 02/09/18 05:20 Anion Gap 12.1 mmol/L (6.8-13.8) 02/09/18 05:20 BUN 18 mg/dL (6-23) 02/09/18 05:20 Creatinine 1.70 mg/dL (0.4-1.4) H 02/09/18 05:20 Est GFR (Non-Af Amer) 42 mL/min (60-130) L 02/09/18 05:20 BUN/Creatinine Ratio 10.6 (9.0-21.6) 02/09/18 05:20 Random Glucose 171 mg/dL (70-110) H D 02/09/18 05:20 Calcium 8.9 mg/dL (7.9-10.9) 02/09/18 05:20 Calcium Adj for Albumin 8.9 mg/dL (8.4-10.2) 02/09/18 05:20 Total Bilirubin 0.7 mg/dL (0.0-1.1) 02/09/18 05:20 AST 19 U/L (0-48) 02/09/18 05:20 ALT 19 U/L (19-67) 02/09/18 05:20 Alkaline Phosphatase 112 U/L (50-170) 02/09/18 05:20 Troponin I Less than 0.017 ng/mL (0.00-0.10) 02/08/18 20:35 B-Natriuretic Peptide 1646 pg/mL (5-350) H 02/08/18 18:26 Total Protein 6.6 gm/dL (6.2-8.2) 02/09/18 05:20 Albumin 3.6 gm/dl (3.4-5.0) 02/09/18 05:20 Group A Strep Rapid Negative (NEGATIVE) 02/08/18 19:39 Assessment/Plan - Assessment/Plan (1) Chronic a-fib Assessment: stable, continue meds unchanged. Problem: Acute (2) Elevated d-dimer Assessment: doubt PE given sx, plus he could not tolerate a filter placement, if it would even be considered, so overall therapy would not change, continue eliquis. Problem: Acute (3) Renal insufficiency Assessment: this can effect D-dimer. it is stable overall. Problem: Acute (4) Abdominal distension, gaseous Assessment: d/w ways to help minimize air swallowing - pursed lip breathing and to release gas out rectum (chest down, bottom up on bed) which he states he'll work on and try. Improving this should help his breathing tremendouslly. Problem: Acute (5) COPD (chronic obstructive pulmonary disease) Assessment: stable, don't believe he has an acute exacerbation. will not continue steroids and abx, except the scheduled zithromax. Problem: Chronic Qualifiers: COPD type: unspecified COPD Qualified Code(s): J44.9 - Chronic obstructive pulmonary disease, unspecified (6) Discharge planning issues Assessment: anticipate d/c home later today. Pt is in distress from an abdominal distension issue, not a PE or COPD issue. Problem: Acute
[2018-02-09] MEDS ORDERED: METOPROLOL TARTRATE 25 MG TABLET PO SCH (09:00)
[2018-02-09] MEDS ORDERED: LIDOCAINE 1 PATCH ADH..PATCH TP SCH (09:00)
[2018-02-09] MEDS: DOCUSATE SODIUM 100 MG CAPSULE PO SCH (09:03)
[2018-02-09] MEDS: APIXABAN 5 MG TABLET PO SCH (09:03)
--- NOTE | 2018-02-09 12:07 | DS ---
(1) Chronic a-fib Problem: Acute (2) Elevated d-dimer Problem: Acute (3) Renal insufficiency Problem: Acute (4) Abdominal distension, gaseous Problem: Acute (5) COPD (chronic obstructive pulmonary disease) Problem: Chronic Qualifiers: COPD type: unspecified COPD Qualified Code(s): J44.9 - Chronic obstructive pulmonary disease, unspecified (6) Discharge planning issues Problem: Acute Description of Stay: COPD/SOB:most likely from abdominal distension. Pt. received a single dose of IV steroids in ER which pt. states didn't help much, nor did breathing tx. He had a + D-dimer, but will normal A-a gradient, no LE edema or cords and no Sx of acute SOB/CP and due to elevated Cr and already on Eliquis CT angiogram was not done. Doubt he had a PE so no further w/u will be done and pt was ok with this. Abdominal distension and gas: continued miralax and suppositories with minimal improvement of sx, but was having plenty of loose stools. Recommend head down, Butt up position to see if this helps pass gas and decompress colon. Also do pursed lip breathing to limit air swallowing. Pt. did have elevated K, but feel this may be more lab error as he typically runs low. No changes at this time. Will recheck BMP at f/u in 9 days Afib: stable, continue Eliquis. ST: could be thrush as strep was negative. will do nystatin swish and swallow. Procedures Performed: none Results and Findings: Lab Pending Results 02/08/18 18:26: WBC 10.1, RBC 5.04, Hgb 15.8, Hct 47.3, MCV 93.8, MCH 31.3 H, MCHC 33.4, RDW 14.4 H, Plt Count 231, MPV 9.4, Immature Gran % (Auto) 0.20, Immature Gran # (Auto) 0.02, Neutrophils % 68.3, Lymphocytes % 17.0 L, Monocytes % 9.5 H, Eosinophils % 4.2 H, Basophils % 0.8, Nucleated RBC % 0.0, Neutrophils # 6.9 H, Lymphocytes # 1.72, Monocytes # 1.0, Eosinophils # 0.4, Absolute Basophils 0.1 02/08/18 18:26: Sodium 139, Plasma Sodium 139, Potassium 4.5 D, Chloride 103, Carbon Dioxide 30.7, Anion Gap 9.8, BUN 19, Creatinine 1.92 H, Est GFR (Non-Af Amer) 37 L, BUN/Creatinine Ratio 9.9, Random Glucose 91, Calcium 8.7, Calcium Adj for Albumin 8.6, Total Bilirubin 0.4, AST 15, ALT 16 L, Alkaline Phosphatase 108, B-Natriuretic Peptide 1646 H, Total Protein 7.2, Albumin 3.7 02/08/18 18:31: D-Dimer 1.24 H 02/08/18 19:39: Group A Strep Rapid Negative 02/08/18 20:35: Troponin I Less than 0.017 02/09/18 05:20: Sodium 136, Plasma Sodium 137, Potassium 5.0 H, Chloride 102, Carbon Dioxide 26.9, Anion Gap 12.1, BUN 18, Creatinine 1.70 H, Est GFR (Non-Af Amer) 42 L, BUN/Creatinine Ratio 10.6, Random Glucose 171 H D, Calcium 8.9, Calcium Adj for Albumin 8.9, Total Bilirubin 0.7, AST 19, ALT 19, Alkaline Phosphatase 112, Total Protein 6.6, Albumin 3.6 Discharge Location: Home Disposition: Home self-care Condition: Stable Discharge Activity: Activity as tolerated Discharge Diet: General/regular food Referrals: Bello Ortez MD [Primary Care Provider] - 02/18/18 Additional Patient Instructions (free text): -Please make TCM appointment unless long-term discharge. Thank you! Seema @ [phone] or Kala @ [phone]. Prescriptions (Any new or edited meds): Nystatin 500,000 unit PO QID #200 oral.susp Complete Home Medications List: Complete Home Medication List: Atorvastatin Calcium [Lipitor] 40 mg PO HS 05/15/16 albuterol sulfate 2.5 mg/3 mL (0.083 %) solution for nebulization 2.5 mg IH Q4H PRN 10/09/17 alprazolam 0.25 mg tablet 0.25 - 0.5 mg PO HS PRN 10/09/17 apixaban 5 mg tablet 5 mg PO BID tab 10/09/17 bumetanide 1 mg tablet 3 mg PO 0530,1200 tab 10/09/17 cholecalciferol (vitamin D3) 5,000 unit capsule 5,000 unit PO DAILY 10/09/17 ipratropium-albuterol 0.5 mg-3 mg(2.5 mg base)/3 mL nebulization soln 3 ml IH TID PRN 10/09/17 tiotropium 2.5 mcg-olodaterol 2.5 mcg/actuation mist for inhalation 2 puff IH DAILY 10/09/17 nebulizer accessories kit See Dose Instructions .ROUTE .MEDSUPPLY #1 ea 11/21/17 Albuterol Sulfate [Proair Hfa] 1 - 2 puff IH Q4H PRN 12/10/17 Metolazone [Zaroxolyn] 2.5 mg PO DAILY PRN 12/10/17 Potassium Chloride [K-Dur] 20 meq PO TID 12/10/17 docusate sodium 100 mg capsule 100 mg PO BID 01/13/18 oxycodone-acetaminophen 5 mg-325 mg tablet 1 tab PO Q4H PRN #60 tab 01/13/18 metoprolol tartrate 50 mg tablet 25 mg PO BID tab 02/03/18 Albuterol Sulfate/Ipratropium [Duoneb 2.5-0.5MG/3ML Soln] 3 ml IH Q6H PRN nebu 02/09/18 Lidocaine [Lidoderm 5%] 1 patch TP 2230 adh..patch 02/09/18 Nystatin 500,000 unit PO QID #200 oral.susp 02/09/18 azithromycin 500 mg tablet 500 mg PO 3XW #9 tab 02/09/18 spironolactone 100 mg tablet 100 mg PO BID #60 tab 02/09/18
[2018-02-09 12:33] VITALS: BP 100/56
== END 2018-02-09 13:00 | disposition home or self-care (01) ==
LOC: ER 17:50 → MS 17:50
PROVIDERS: ADMIT Family Medicine; ATTEND Family Medicine
CPT/HCPCS: 36415; 71010; 71045; 74019; 74020; 80053; 83519; 83880; 84484; 85025; 85379; 87081; 87430; 90686; 93005; 94640; 94664; 96374; 99284; G0008; G0378

== ENCOUNTER 2018-12-05 15:52 | Inpatient (IN) ==
[2018-12-05] MEDS ORDERED: ALBUTEROL SULFATE 2.5 MG/0.5 ML VIAL.NEB IH ONE (16:06)
--- NOTE | 2018-12-05 16:18 | ERNOTE ---
Dyspnea - General Presenting Symptoms: shortness of breath Time Seen by Provider: 12/05/18 15:55 Source: patient Exam Limitations: no limitations - Immun/Allergies/Home Medications Immunizations: IMMUNIZATION HX Immunizations Up to Date Yes History of Influenza Vaccine No Hx Pneumococcal Vaccination Yes Allergies/Adverse Reactions: Allergies mometasone furoate [From Nasonex] Adverse Reaction (Mild, Verified 12/05/18 16:02) increased eye pressure acetaminophen [From Percocet] Adverse Reaction (Verified 12/05/18 16:02) makes him "looney" makes him "looney" oxycodone [From Percocet] Adverse Reaction (Verified 12/05/18 16:02) makes him "looney" makes him "looney" Home Medications: HOME MEDICATIONS Atorvastatin Calcium [Lipitor] 40 mg PO HS 05/15/16 [Last Taken 02/08/18 16:30] Metolazone [Zaroxolyn] 2.5 mg PO DAILY PRN 12/10/17 [Last Taken 02/08/18 16:30] Potassium Chloride [K-Dur] 20 meq PO TID 12/10/17 [Last Taken 02/08/18 16:30] metoprolol tartrate 50 mg tablet 50 mg PO BID tab 02/03/18 [Last Taken 02/08/18 16:30] spironolactone 100 mg tablet 100 mg PO BID #60 tab 02/09/18 [Last Taken Unknown] gabapentin 600 mg tablet 600 mg PO TID #90 tab 08/10/18 [Last Taken Unknown] Albuterol Sulfate [Ventolin Hfa] 1 puff INHALATION Q4H PRN 12/05/18 [Last Taken Unknown] Apixaban [Eliquis] 5 mg PO BID 12/05/18 [Last Taken Unknown] Bumetanide [Bumex] 3 mg PO BID 12/05/18 [Last Taken Unknown] Latanoprost/Pf [Latanoprost 0.005% Eye Drop] 1 drp EACHEYE BID 12/05/18 [Last Taken Unknown] Tiotropium Br/Olodaterol HCl [Stiolto Respimat Inhal Ortley] 4 gm INHALATION DAILY 12/05/18 [Last Taken Unknown] - History of Present Illness Narrative: Patient has a history of 'mild' COPD. Two days ago he started to have multiple episodes of diarrhea throughout the day, last two were black, no BM yesterday or today, no vomiting, aching epigastric pain currently 06/14. When he didn't have a bowl movement today he inserted a suppository and his finger came out bloody. Yesterday he started to have increasing shortness of breath, no cough, no fever, no other URI symptoms. He has had COPD exacerbations in the past usually treated with steroid. He didn't think his inhalers helped much, chest tightness Date (Duration): 12/03/18 Severity: moderate Treatment [employer]UMENT [employer]ER: by patient, albuterol Initiating event: Denies: upper resp illness, out of meds Frequency of episodes: Reports: occassional episodes Modifying Factors - (Improves): Reports: rest Modifying Factors (Worsens): Reports: activity Associated Symptoms-Dyspnea: Reports: chest pain/discomfort, wheezing. Denies: fever/chills, cough, tingling of hands/face Prior Treatment: Denies: recently seen, currently on antibiotics Review of Systems - Review of Systems Constitutional: Absent: fever ENT: Absent: nose congestion, sore throat Respiratory: Present: See HPI, shortness of breath. Absent: cough Cardiology: Present: See HPI Gastrointestinal/Abdominal: Present: See HPI, diarrhea, abdominal pain. Absent: nausea Genitourinary: Present: no symptoms reported Musculoskeletal: Absent: back pain Neurological: Absent: headache Medical History (Updated 12/05/18 @ 17:53 by Delia Carlin MD) COPD (chronic obstructive pulmonary disease) (Chronic) Hypokalemia (Chronic) RONQUILLO (dyspnea on exertion) (Chronic) Neck pain (Chronic) Atrial fibrillation Blindness, legal left eye CAD (coronary artery disease) CHF (congestive heart failure) COPD (chronic obstructive pulmonary disease) Carpal tunnel syndrome DVT (deep venous thrombosis) Diverticulitis Early satiety Hyperlipidemia Hypertension Hypovitaminosis D Myocardial infarction Pneumothorax Prostate neoplasm Rib fracture Sleep apnea Spondylosis Stenosis of right subclavian artery Subclavian arterial stenosis Surgical History: Surgical History (Updated 02/10/18 @ 09:11 by Bello Ortez MD) H/O colonoscopy H/O nasal septoplasty H/O prostatectomy H/O shoulder surgery History of arthroscopic procedure on shoulder History of cardioversion History of carpal tunnel release History of colon resection Hx of radical excision of skin lesion S/P triple vessel bypass excision of sebacous cyst hemorrhoidal banding incision and debridement r/t colon surgery H/O sigmoidoscopy Onset Date: ~01/09/18 Dr. Curiel Family History: Family History (Updated 10/09/17 @ 10:19 by Enedina Snowden LPN) Brother Diabetes Father Black lung Mother Diabetes Heart disease Sister No problems noted. Social History: (Last Reviewed 12/05/18 @ 16:02 by Sarah Gaitan RN) Social History: Marital status: household members: spouse number of children: 2 current occupational status: retired Highest education level completed: Bachelor's degree Service: No Tobacco: Smoking Status: Former smoker Alcohol: alcohol intake: current Substance Use: substance use type: does not use Dietary Habits: caffeine: Yes Personal Safety: victim of physical abuse: No victim of emotional abuse: No Physical Exam - Physical Exam General Appearance: Present: wd/wn, alert, mild distress, obese Head Exam: Present: normal inspection Ears, Nose, Throat: Present: normal pharynx Respiratory: Present: no respiratory distress, no accessory muscle use, decreased breath sounds, expiration (prolonged), wheezing - few, other - increased RR Cardiovascular/Chest: Present: regular rate, rhythm, no murmur Gastrointestinal/Abdominal: Present: normal bowel sounds, nondistended, soft, tenderness - mild epigastric Rectal Exam: Present: nontender, other - no stool, few streaks of blood on finger Extremity Exam: Present: no edema Neurological Exam: Present: alert, oriented, normal mood/affect Skin Exam: Present: normal color, warm/dry Progress - Results and Orders Patient's Lab Results:: I have reviewed the patient's lab results. - Vital Signs Patient's Vital Signs:: I have reviewed the patient's vital signs. Vital Signs: Vital Signs 12/05/18 15:53 12/05/18 16:06 Temperature 37.0 C Pulse Rate 95 100 Respiratory Rate 15 Blood Pressure 106/62 O2 Sat by Pulse Oximetry 95 - EKG EKG #1 EKG: atrial fibrillation, nonspecific ST T wave changes EKG read: Interp. by me - X-Ray X-Ray #1 X-Ray: chest - chronic, no acute changes Interpretation: Reviewed by me X-Ray #2 X-Ray: abdomen - abnormal gas pattern ,see report Interpretation: Reviewed by me - Progress/Reassessment Chief Complaint: Dyspnea Progress Note-Subjective: 12/05/18 16:34 no significant change in shortness of breath or lung exam after albuterol neb treatment 12/05/18 17:15 anoscope: no gross bleeding or clots, no fissures, few streaks of blood mixed with KYJ discussed test results with patient and , offered admission as H/H is dropping, patient agreed 12/05/18 17:22 discussed with priscila Dash to admit for observation for GI bleed with dropping H/H and GI bleed protocol and CHF 12/05/18 18:08 discussed abdominal Xray readings by radiologist with Dr Jackson. As patient has no clinical signs of bowel obstruction will not get any further imaging at this time Departure Clinical Impression: Chronic a-fib, Chronic renal insufficiency, stage III (moderate) GI bleed Qualifiers: GI bleed type/associated pathology: melena Qualified Code(s): K92.1 - Melena Congestive heart failure Qualifiers: Heart failure type: unspecified Heart failure chronicity: acute on chronic Qualified Code(s): I50.9 - Heart failure, unspecified - Departure Disposition: Still a patient Condition: Stable
[2018-12-05 16:29] LABS: Hematocrit 37.3 % (42.0-52.0); Hemoglobin 12.1 gm/dL (13.5-18.0); Mean Cell Volume 94.4 fl (78-100); Mean Corpuscular Hemoglobin 30.6 pg (27-31); Mean Corpuscular Hgb Conc 32.4 g/dl (32-36); Mean Platelet Volume 9.2 fl (8-11.3); Neutrophil # 9.3 K/mm3 (1.3-6.0); Neutrophil % 80.5 % (42-75.0); Platelet Count 206 K/mm3 (150-450); Red Blood Count 3.95 M/mm3 (4.7-6.0); Red Cell Distribution Width 15.1 % (11.5-14.0); White Blood Count 11.5 K/mm3 (4.0-10.5)
[2018-12-05] MEDS ORDERED: PANTOPRAZOLE SODIUM 40 MG/100 ML PIGGYBACK IV ONE (16:40)
[2018-12-05 16:45] LABS: ALT 10 U/L (19-67); AST 12 U/L (0-48); Albumin * 3.2 gm/dl (3.4-5.0); Alkaline Phosphatase * 56 U/L (50-170); Anion Gap 10.4 mmol/L (6.8-13.8); BNP * 2369 pg/mL (5-350); BUN/Creatinine Ratio 15.8 (9.0-21.6); Bilirubin, Total 0.4 mg/dL (0.0-1.1); Blood Urea Nitrogen 35 mg/dL (6-23); Ca. Corrected For Albumin 8.4 mg/dL (8.4-10.2); Calcium * 8.1 mg/dL (7.9-10.9); Carbon Dioxide 30.3 mmol/L (24-32.6); Chloride 103 mmol/L (97-106); Glucose * 113 mg/dL (70-110); Potassium 4.7 mmol/L (3.4-4.6); Sodium 139 mmol/L (132-142); Total Protein 5.9 gm/dL (6.2-8.2)
[2018-12-05 16:46] LABS: Troponin I Less than 0.017 ng/mL (0.00-0.10)
--- NOTE | 2018-12-05 21:14 | HP ---
Chief Complaint - Chief Complaint Date of Service: 12/05/18 Time of Service: 20:40 Chief Complaint: black tarry stools History of Present Illness: Patient with a PMHx of renal insufficiency, previous SBO, afib presented to the ED for bloody stools. Two days prior, he had diarrhea all day, and had a couple of black stools with blood. He had not had any bowel movement for a couple of days and try to give himself a suppository today, and when he did so, it came out almost immediately and there was blood and blood in the toilet. He also feels like his abdomen is very distended, and is unable to take in a deep breath. Denies chest pain, abdominal pain, dysuria, skin changes, lower extremity swelling. He has had abdominal surgery in the past for a ruptured colon. His hemoglobin was 18 on a recent check approximately 10 days ago, and was 12.1 today. He is admitted for serial H&H's. He was seen here recently for some vertigo, and was started on meclizine. He has gained some weight over the last year and a half, and has been unsuc cessful trying to lose it, which interferes with his mobility. He also reports having some neuropathy. Medical History (Updated 12/05/18 @ 17:53 by Delia Carlin MD) COPD (chronic obstructive pulmonary disease) (Chronic) Hypokalemia (Chronic) RONQUILLO (dyspnea on exertion) (Chronic) Neck pain (Chronic) Atrial fibrillation Blindness, legal left eye CAD (coronary artery disease) CHF (congestive heart failure) COPD (chronic obstructive pulmonary disease) Carpal tunnel syndrome DVT (deep venous thrombosis) Diverticulitis Early satiety Hyperlipidemia Hypertension Hypovitaminosis D Myocardial infarction Pneumothorax Prostate neoplasm Rib fracture Sleep apnea Spondylosis Stenosis of right subclavian artery Subclavian arterial stenosis Surgical History: Surgical History (Updated 02/10/18 @ 09:11 by Bello Ortez MD) H/O colonoscopy H/O nasal septoplasty H/O prostatectomy H/O shoulder surgery History of arthroscopic procedure on shoulder History of cardioversion History of carpal tunnel release History of colon resection Hx of radical excision of skin lesion S/P triple vessel bypass excision of sebacous cyst hemorrhoidal banding incision and debridement r/t colon surgery H/O sigmoidoscopy Onset Date: ~01/09/18 Dr. Curiel Family History: Family History (Updated 10/09/17 @ 10:19 by Enedina Snowden LPN) Brother Diabetes Father Black lung Mother Diabetes Heart disease Sister No problems noted. Social History: (Last Updated 12/05/18 @ 18:50 by Kierra Olson RN) Social History: Marital status: household members: spouse number of children: 2 current occupational status: retired Highest education level completed: Bachelor's degree Service: No Tobacco: Smoking Status: Former smoker Alcohol: alcohol intake: current alcohol intake frequency: holiday/special occasion Substance Use: substance use type: does not use Dietary Habits: well-balanced diet: daily or most days caffeine: Yes Personal Safety: do you feel safe at home: Yes victim of physical abuse: No victim of emotional abuse: No Review Of Systems (GEN) - Review of Systems Generalized/Overall Review: Absent: Fever Respiratory: Present: Shortness of Breath. Absent: Cough Cardiac: Absent: Chest Pain, Edema Abdominal: Present: Melena, Bright blood from rectum Genitourinary: Absent: Dysuria Musculoskeletal: Present: No Symptoms Reported Neurological: Present: Numbness - bilateral feet Skin: Present: No Symptoms Reported Immunizations: IMMUNIZATION HX Immunizations Up to Date Yes History of Influenza Vaccine No Hx Pneumococcal Vaccination Yes Allergies/Adverse Reactions: Allergies Allergy/AdvReac Type Severity Reaction Status Date / Time mometasone furoate AdvReac Mild increased Verified 12/05/18 18:51 [From Nasonex] eye pressure oxycodone [From Percocet] AdvReac makes him Verified 12/05/18 18:51 "looney" Home Medications: HOME MEDICATIONS Atorvastatin Calcium [Lipitor] 40 mg PO HS 05/15/16 [Last Taken 02/08/18 16:30] Metolazone [Zaroxolyn] 2.5 mg PO DAILY PRN 12/10/17 [Last Taken 02/08/18 16:30] Potassium Chloride [K-Dur] 20 meq PO TID 12/10/17 [Last Taken 02/08/18 16:30] metoprolol tartrate 50 mg tablet 50 mg PO BID tab 02/03/18 [Last Taken 02/08/18 16:30] spironolactone 100 mg tablet 100 mg PO BID #60 tab 02/09/18 [Last Taken Unknown] gabapentin 600 mg tablet 600 mg PO TID #90 tab 08/10/18 [Last Taken Unknown] ALPRAZolam [Xanax] 1 - 2 tab PO HS PRN 12/05/18 [Last Taken Unknown] Albuterol Sulfate [Ventolin Hfa] 1 puff INHALATION Q4H PRN 12/05/18 [Last Taken Unknown] Apixaban [Eliquis] 5 mg PO BID 12/05/18 [Last Taken Unknown] Bumetanide [Bumex] 3 mg PO BID 12/05/18 [Last Taken Unknown] Latanoprost/Pf [Latanoprost 0.005% Eye Drop] 1 drp EACHEYE BID 12/05/18 [Last Taken Unknown] Meclizine HCl [Antivert] 25 mg PO TID 12/05/18 [Last Taken Unknown] Tiotropium Br/Olodaterol HCl [Stiolto Respimat Inhal Marty] 4 gm INHALATION DAILY 12/05/18 [Last Taken Unknown] Exam - Exam Vital Signs: Vital Signs - Last Taken Temp 36.6 C 12/05/18 18:59 Pulse 86 12/05/18 18:59 Resp 22 H 12/05/18 18:59 BP 95/45 12/05/18 18:59 Pulse Ox 95 12/05/18 18:59 Constitutional: Present: Alert, Oriented x3, Cooperative, Obese Respiratory: Present: normal breath sounds. Absent: crackles, rales, rhonchi, wheezing Cardiovascular/Chest: Present: regular rate, rhythm Abdomen: Present: firm, distended, high pitched bowel sounds Extremity: Absent: lower extremity edema Neurologic: Present: normal mood/affect Eye contact: Present: cooperative Diagnostic Studies: Abnormal Lab Results 12/05/18 12/05/18 12/05/18 Range/Units 16:04 16:20 16:20 WBC 11.5 H (4.0-10.5) K/mm3 RBC 3.95 L (4.7-6.0) M/mm3 Hgb 12.1 L (13.5-18.0) gm/dL Hct 37.3 L (42.0-52.0) % RDW 15.1 H (11.5-14.0) % Immature Gran % (Auto) 0.60 H (0.001-0.429) % Immature Gran # (Auto) 0.07 H (0.000-0.0310) K/mm3 Neutrophils % 80.5 H (42-75.0) % Lymphocytes % 8.4 L (20-51) % Monocytes % 9.1 H (0.0-9) % Neutrophils # 9.3 H (1.3-6.0) K/mm3 Lymphocytes # 0.97 L (1.5-3.5) k/mm3 Monocytes # 1.1 H (0.0-1.0) k/mm3 Potassium 4.7 H (3.4-4.6) mmol/L BUN 35 H (6-23) mg/dL Creatinine 2.21 H (0.4-1.4) mg/dL Est GFR (Non-Af Amer) 31 L (60-130) mL/min Random Glucose 113 H (70-110) mg/dL Lactic Acid, Venous 2.3 H* (0.4-2.0) mmol/L ALT 10 L (19-67) U/L B-Natriuretic Peptide 2369 H (5-350) pg/mL Total Protein 5.9 L (6.2-8.2) gm/dL Albumin 3.2 L (3.4-5.0) gm/dl Laboratory Results WBC 11.5 K/mm3 (4.0-10.5) H 12/05/18 16:20 RBC 3.95 M/mm3 (4.7-6.0) L 12/05/18 16:20 Hgb 12.1 gm/dL (13.5-18.0) L 12/05/18 16:20 Hct 37.3 % (42.0-52.0) L 12/05/18 16:20 MCV 94.4 fl (78-100) 12/05/18 16:20 MCH 30.6 pg (27-31) 12/05/18 16:20 MCHC 32.4 g/dl (32-36) 12/05/18 16:20 RDW 15.1 % (11.5-14.0) H 12/05/18 16:20 Plt Count 206 K/mm3 (150-450) 12/05/18 16:20 MPV 9.2 fl (8-11.3) 12/05/18 16:20 Immature Gran % (Auto) 0.60 % (0.001-0.429) H 12/05/18 16:20 Immature Gran # (Auto) 0.07 K/mm3 (0.000-0.0310) H 12/05/18 16:20 80.5 % (42-75.0) H 12/05/18 16:20 8.4 % (20-51) L 12/05/18 16:20 9.1 % (0.0-9) H 12/05/18 16:20 1.0 % (0.0-3.0) 12/05/18 16:20 0.4 % (0.0-1.0) 12/05/18 16:20 Nucleated RBC % 0.0 k/mm3 (0-1) 12/05/18 16:20 9.3 K/mm3 (1.3-6.0) H 12/05/18 16:20 0.97 k/mm3 (1.5-3.5) L 12/05/18 16:20 1.1 k/mm3 (0.0-1.0) H 12/05/18 16:20 0.1 k/mm3 (0.0-0.7) 12/05/18 16:20 Absolute Basophils 0.1 k/mm3 (0.0-0.1) 12/05/18 16:20 Sodium 139 mmol/L (132-142) 12/05/18 16:20 139 mmol/L (130-142) 12/05/18 16:20 Potassium 4.7 mmol/L (3.4-4.6) H 12/05/18 16:20 Chloride 103 mmol/L (97-106) 12/05/18 16:20 Carbon Dioxide 30.3 mmol/L (24-32.6) 12/05/18 16:20 10.4 mmol/L (6.8-13.8) 12/05/18 16:20 BUN 35 mg/dL (6-23) H 12/05/18 16:20 2.21 mg/dL (0.4-1.4) H 12/05/18 16:20 Est GFR (Non-Af Amer) 31 mL/min (60-130) L 12/05/18 16:20 15.8 (9.0-21.6) 12/05/18 16:20 113 mg/dL (70-110) H 12/05/18 16:20 2.3 mmol/L (0.4-2.0) H* 12/05/18 16:04 Calcium 8.1 mg/dL (7.9-10.9) 12/05/18 16:20 Calcium Adj for Albumin 8.4 mg/dL (8.4-10.2) 12/05/18 16:20 0.4 mg/dL (0.0-1.1) 12/05/18 16:20 AST 12 U/L (0-48) 12/05/18 16:20 ALT 10 U/L (19-67) L 12/05/18 16:20 56 U/L (50-170) 12/05/18 16:20 Less than 0.017 ng/mL (0.00-0.10) 12/05/18 16:20 B-Natriuretic Peptide 2369 pg/mL (5-350) H 12/05/18 16:20 5.9 gm/dL (6.2-8.2) L 12/05/18 16:20 3.2 gm/dl (3.4-5.0) L 12/05/18 16:20 Assessment/Plan - Assessment/Plan (1) GI bleed Assessment: He reports having some bloody stools, and blood in the toilet after giving himself a suppository today. Hemoglobin decreased from 18.0 on November 26, and was 12.1 today. We will recheck hemoglobin in the morning. Heart rate and respiratory rate are appropriate, but most recent blood pressure was a bit low at 95/45. He also had an elevated lactate of 2.3, recheck pending. If it remains high, will obtain CT abdomen pelvis without contrast, due to his creatinine. Problem: Acute Qualifiers: GI bleed type/associated pathology: melena Qualified Code(s): K92.1 - Melena (2) Small bowel obstruction Assessment: His abdomen is distended, and he feels like he can't take a deep breath in. He has had previous abdominal surgery. Due to the increasing lactate, will obtain CT abdomen/pelvis without IV contrast due to elevated creatinine. Possible SBO on abdominal xrays. Will place NG tube if CT is positive for SBO. Problem: Suspected (3) Renal insufficiency Assessment: It appears like his baseline is around 1.5, and he is currently at 2.21. Will administer IV fluids tonight, and will need to monitor for fluid overload given his history of CHF. Problem: Acute (4) Lactate blood increase Assessment: HIs BP was a bit low, which could be a source, but will also obtain a CT abd/pel to assess for mesenteric ischemia. Problem: Acute
[2018-12-05] MEDS ORDERED: NORMAL SALINE 1,000 ML IV PRN (21:24)
[2018-12-05] MEDS ORDERED: DIATRIZOATE MEGLUMINE, SODIUM 30 ML BTL PO ONE (22:43)
[2018-12-06] MEDS ORDERED: ALPRAZolam 0.5 MG TABLET PO PRN (02:09)
[2018-12-06] MEDS: GABAPENTIN 600 MG TABLET PO SCH ×2 (02:21→08:49)
[2018-12-06 04:23] LABS: Hematocrit 34.2 % (42.0-52.0); Hemoglobin 11.1 gm/dL (13.5-18.0)
[2018-12-06 07:57] LABS: Albumin * 3.1 gm/dl (3.4-5.0); Anion Gap 8.8 mmol/L (6.8-13.8); BUN/Creatinine Ratio 16.4 (9.0-21.6); Bilirubin, Total 0.5 mg/dL (0.0-1.1); Ca. Corrected For Albumin 8.4 mg/dL (8.4-10.2); Potassium 4.8 mmol/L (3.4-4.6); Total Protein 6.1 gm/dL (6.2-8.2)
[2018-12-06] MEDS ORDERED: NORMAL SALINE 1,000 ML IV PRN ×2 (08:07)
--- NOTE | 2018-12-06 08:30 | CONS ---
[facility] - General Date of Service: 12/06/18 Source: patient Exam Limitations: no limitations - History of Present Illness Initial Comments: Go is a pleasant 73-year-old gentleman who was admitted for abdominal distention. He rates his pain at a 1 or 2. He had a CT scan last night that was unremarkable. He has a history of having a sigmoidoscopy with Dr. Curiel, followed by a colon surgery with ostomy. He then had the ostomy reversed. The colon surgery was done in [place]. He believes he had an EGD at the same time as this occurred. He denies taking any NSAIDs. He just feels bloated, he does not have abdominal pain. He wants to go home as soon as possible. He had 2 bowel movements this morning. The bowel movements did not relieve his distention. Timing/Duration: - Friday Modifying Factors - (Worsens): Reports: eating Modifying Factors - (Improves): Reports: immobilization Associated Symptoms: denies symptoms Allergies/Adverse Reactions: Allergies mometasone furoate [From Nasonex] Adverse Reaction (Mild, Verified 12/05/18 18:51) increased eye pressure oxycodone [From Percocet] Adverse Reaction (Verified 12/05/18 18:51) makes him "looney" makes him "looney" Home Medications: Home Medications Medication Instructions Recorded Last Taken Atorvastatin Calcium [Lipitor] 40 mg PO HS 05/15/16 02/08/18 16:30 Metolazone [Zaroxolyn] 2.5 mg PO DAILY PRN 12/10/17 02/08/18 16:30 Potassium Chloride [K-Dur] 20 meq PO TID 12/10/17 02/08/18 16:30 metoprolol tartrate 50 mg tablet 50 mg PO BID tab 02/03/18 02/08/18 16:30 spironolactone 100 mg tablet 100 mg PO BID #60 tab 02/09/18 Unknown gabapentin 600 mg tablet 600 mg PO TID #90 tab 08/10/18 Unknown ALPRAZolam [Xanax] 1 - 2 tab PO HS PRN 12/05/18 Unknown Albuterol Sulfate [Ventolin Hfa] 1 puff INHALATION Q4H PRN 12/05/18 Unknown Apixaban [Eliquis] 5 mg PO BID 12/05/18 Unknown Bumetanide [Bumex] 3 mg PO BID 12/05/18 Unknown Latanoprost/Pf [Latanoprost 0.005% 1 drp EACHEYE BID 12/05/18 Unknown Eye Drop] Meclizine HCl [Antivert] 25 mg PO TID 12/05/18 Unknown Tiotropium Br/Olodaterol HCl 4 gm INHALATION DAILY 12/05/18 Unknown [Stiolto Respimat Inhal [place]] Procedures ANESTH INJECT-SPIN CANAL (02/28/09) Atrial cardioversion (04/10/12) Colonoscopy (10/26/14) Contrast arthrogram (06/24/12) Endoscopic polypectomy of large intestine (04/30/07) INJECT STEROID (02/28/09) Incision with removal of foreign body or device from skin and subcutaneous tissue (08/21/04) Injection of anesthetic into spinal canal for analgesia (06/04/11) Injection of other agent into spinal canal (06/04/11) Injection of steroid (06/04/11) Injection or infusion of other therapeutic or prophylactic substance (05/16/11) Injection or infusion of thrombolytic agent (03/04/05) Intranasal antrotomy (01/10/11) Ligation of hemorrhoids (10/26/14) OTH ARTHROTOMY-HAND/FNGR (07/24/09) OTHER SKIN & SUBQ I D (07/18/09) Other electric countershock of heart (08/17/11) Other local excision or destruction of lesion of joint, shoulder (05/12/12) Other partial ostectomy, scapula, clavicle, and thorax [ribs and sternum] (05/12/12) Other repair of shoulder (05/12/12) Other septoplasty (01/10/11) Other turbinectomy (01/10/11) Release of carpal tunnel (04/03/12) Rotator cuff repair (06/30/12) SPINAL CANAL INJECT NEC (02/28/09) Suture of capsule or ligament of upper extremity (06/30/12) Medications - Medications Current Medications: Current Medications Alprazolam (Xanax) 0.5 mg PO HS PRN PRN Reason: Sleep Stop: 01/05/19 02:10 Last Admin: 12/06/18 02:21 Dose: 0.5 mg Documented by: Gabapentin (Neurontin) 600 mg PO TID JEYSON Stop: 01/05/19 02:16 Last Admin: 12/06/18 02:21 Dose: 600 mg Documented by: Review of Systems - Review of Systems Generalized/Overall Review: Present: Malaise EENTM: Present: No Symptoms Reported Respiratory: Present: No Symptoms Reported Abdominal: Present: Other - Distention Genitourinary: Present: No Symptoms Reported Musculoskeletal: Present: No Symptoms Reported Neurological: Present: No Symptoms Reported Skin: Present: No Symptoms Reported Endocrine: Present: No Symptoms Reported Physical Examination - Exam Vital Signs: Vital Signs - Last Taken Temp 37.4 C 12/06/18 07:29 Pulse 75 12/06/18 07:29 Resp 16 12/06/18 07:29 BP 106/68 12/06/18 07:29 Pulse Ox 92 L 12/06/18 07:29 O2 Oxygen Delivery Method Room Air Constitutional: Present: Alert, Oriented x3, Cooperative ENT Exam: Present: hearing grossly normal Neck: Present: supple, limited range of motion Breasts: Present: Exam deferred Respiratory: Present: lungs clear, normal breath sounds Cardiovascular/Chest: Present: regular rate, rhythm, no JVD Abdomen: Present: Normal bowel sounds, soft, nontender, distended. Absent: nondistended /Rectal: Present: Exam deferred Extremity: Present: normal range of motion Skin Exam: Present: normal color Neurologic: Present: diet technician registered II-XII nml as tested Appearance: Present: appropriate appearance Eye contact: Present: cooperative, good eye contact Thoughts: Present: normal thought pattern - Results and Findings: Lab/Microbiology results last 24 hrs: Abnormal/Pending Laboratory Last 24 HRS 12/06/18 12/06/18 12/06/18 07:28 07:00 04:00 WBC RBC Hgb 11.1 L Hct 34.2 L RDW Immature Gran % (Auto) Immature Gran # (Auto) Neutrophils % Lymphocytes % Monocytes % Neutrophils # Lymphocytes # Monocytes # Potassium 4.8 H BUN 29 H Creatinine 1.77 H D Est GFR (Non-Af Amer) 40 L D Random Glucose Lactic Acid, Venous 2.4 H* ALT 11 L B-Natriuretic Peptide Total Protein 6.1 L Albumin 3.1 L 12/05/18 12/05/18 12/05/18 21:02 16:20 16:20 WBC 11.5 H RBC 3.95 L Hgb 12.1 L Hct 37.3 L RDW 15.1 H Immature Gran % (Auto) 0.60 H Immature Gran # (Auto) 0.07 H Neutrophils % 80.5 H Lymphocytes % 8.4 L Monocytes % 9.1 H Neutrophils # 9.3 H Lymphocytes # 0.97 L Monocytes # 1.1 H Potassium 4.7 H BUN 35 H Creatinine 2.21 H Est GFR (Non-Af Amer) 31 L Random Glucose 113 H Lactic Acid, Venous 3.0 H* ALT 10 L B-Natriuretic Peptide 2369 H Total Protein 5.9 L Albumin 3.2 L 12/05/18 16:04 WBC RBC Hgb Hct RDW Immature Gran % (Auto) Immature Gran # (Auto) Neutrophils % Lymphocytes % Monocytes % Neutrophils # Lymphocytes # Monocytes # Potassium BUN Creatinine Est GFR (Non-Af Amer) Random Glucose Lactic Acid, Venous 2.3 H* ALT B-Natriuretic Peptide Total Protein Albumin - Assessments/Findings (1) Abdominal distension, gaseous Problem: Acute Plan - Plan Plan: IV fluids were stopped. Will give a 1 L bolus, and then continue IV fluids. This may be why lactic acid increased overnight. He denies nausea or vomiting. I do not think he needs an NG tube at this time. We discussed the option of a rectal tube versus waiting. He is having flatus and has had 2 bowel movements. At some point he will need an EGD to evaluate the melena. I am hesitant to do that today doing to the abdominal distention. Avoid Lovenox due to GI bleed. Patient is on Protonix. Thank you Dr. Jackson for allowing me to consult on your patient.
[2018-12-06] MEDS ORDERED: SIMETHICONE 80 MG TAB.CHEW PO PRN (09:24)
[2018-12-06 10:05] LABS: Hematocrit 35.1 % (42.0-52.0); Hemoglobin 11.2 gm/dL (13.5-18.0)
--- NOTE | 2018-12-06 10:36 | DS ---
(1) GI bleed Problem: Acute Qualifiers: GI bleed type/associated pathology: melena Qualified Code(s): K92.1 - Melena (2) Small bowel obstruction Problem: Ruled-out (3) Renal insufficiency Problem: Chronic (4) Lactate blood increase Problem: Resolved Date of Discharge:: 12/06/18 Description of Stay: Patient with a PMHx of renal insufficiency, previous SBO, afib presented to the ED for bloody stools. Two days prior, he had diarrhea all day, and had a couple of black stools with blood. He had not had any bowel movement for a couple of days and try to give himself a suppository on the day of admission and when he did so, it came out almost immediately and there was blood in the toilet. He also feels like his abdomen is very distended, and is unable to take in a deep breath. Denies chest pain, abdominal pain, dysuria, skin changes, lower extremity swelling. He has had abdominal surgery in the past for a ruptured colon. His hemoglobin was 18 on a recent check approximately 10 days ago, and was 12.1 today. He is admitted for serial H&H's. Repeat H&H was 11.1 and 11.2. His lactate increased to at 3.0, and CT abdomen/pelvis was checked, and was negative for SBO. There was some concern for ischemic bowel, but unable to obtain contrasted CT due to his renal function. The morning after admission, he continued to have dark bowel movements, but his hemoglobin remained steady. He was also seen by surgery, and appreciate their assistance. He was started on protonix, and she recommends EGD after DC. He was anxious to go home on the day of DC. Since the CT was negative for SBO and his lactate improved, he recovered sooner than expected, and was DC'd with close follow up with me. Procedures Performed: none Results and Findings: Lab Pending Results 12/05/18 16:04: Lactic Acid, Venous 2.3 H* 12/05/18 16:20: WBC 11.5 H, RBC 3.95 L, Hgb 12.1 L, Hct 37.3 L, MCV 94.4, MCH 30.6, MCHC 32.4, RDW 15.1 H, Plt Count 206, MPV 9.2, Immature Gran % (Auto) 0.60 H, Immature Gran # (Auto) 0.07 H, Neutrophils % 80.5 H, Lymphocytes % 8.4 L, Monocytes % 9.1 H, Eosinophils % 1.0, Basophils % 0.4, Nucleated RBC % 0.0, Neutrophils # 9.3 H, Lymphocytes # 0.97 L, Monocytes # 1.1 H, Eosinophils # 0.1, Absolute Basophils 0.1 12/05/18 16:20: Sodium 139, Plasma Sodium 139, Potassium 4.7 H, Chloride 103, Carbon Dioxide 30.3, Anion Gap 10.4, BUN 35 H, Creatinine 2.21 H, Est GFR (Non- Af Amer) 31 L, BUN/Creatinine Ratio 15.8, Random Glucose 113 H, Calcium 8.1, Calcium Adj for Albumin 8.4, Total Bilirubin 0.4, AST 12, ALT 10 L, Alkaline Phosphatase 56, Troponin I Less than 0.017, B-Natriuretic Peptide 2369 H, Total Protein 5.9 L, Albumin 3.2 L 12/05/18 21:02: Lactic Acid, Venous 3.0 H* 12/06/18 04:00: Hgb 11.1 L, Hct 34.2 L 12/06/18 07:00: Lactic Acid, Venous 2.4 H* 12/06/18 07:28: Sodium 138, Plasma Sodium 138, Potassium 4.8 H, Chloride 102, Carbon Dioxide 32.0, Anion Gap 8.8, BUN 29 H, Creatinine 1.77 H D, Est GFR (Non- Af Amer) 40 L D, BUN/Creatinine Ratio 16.4, Random Glucose 82, Calcium 8.0, Calcium Adj for Albumin 8.4, Total Bilirubin 0.5, AST 13, ALT 11 L, Alkaline Phosphatase 53, Total Protein 6.1 L, Albumin 3.1 L 12/06/18 10:00: Hgb 11.2 L, Hct 35.1 L 12/06/18 10:00: Lactic Acid, Venous 1.7 Discharge Location: Home Disposition: Home self-care Condition: Stable Discharge Activity: Activity as tolerated Discharge Diet: General/regular food Referrals: Seema Jackson DO [Staff Physician] - One Week Prescriptions (Any new or edited meds): Simethicone [Mylicon Chewable Tablets] 80 mg PO QID PRN #1 bottle PRN Reason: Indigestion Pantoprazole Sodium [Protonix] 40 mg PO DAILY #30 tablet. Complete Home Medications List: Complete Home Medication List: Atorvastatin Calcium [Lipitor] 40 mg PO HS 05/15/16 Metolazone [Zaroxolyn] 2.5 mg PO DAILY PRN 12/10/17 Potassium Chloride [K-Dur] 20 meq PO TID 12/10/17 metoprolol tartrate 50 mg tablet 50 mg PO BID tab 02/03/18 spironolactone 100 mg tablet 100 mg PO BID #60 tab 02/09/18 gabapentin 600 mg tablet 600 mg PO TID #90 tab 08/10/18 ALPRAZolam [Xanax] 1 - 2 tab PO HS PRN 12/05/18 Albuterol Sulfate [Ventolin Hfa] 1 puff INHALATION Q4H PRN 12/05/18 Apixaban [Eliquis] 5 mg PO BID 12/05/18 Bumetanide [Bumex] 3 mg PO BID 12/05/18 Latanoprost/Pf [Latanoprost 0.005% Eye Drop] 1 drp EACHEYE BID 12/05/18 Meclizine HCl [Antivert] 25 mg PO TID 12/05/18 Tiotropium Br/Olodaterol HCl [Stiolto Respimat Inhal [place]] 4 gm INHALATION DAILY 12/05/18 ALPRAZolam [Xanax] 0.5 mg PO HS PRN tablet 12/06/18 Gabapentin [Neurontin] 600 mg PO TID tablet 12/06/18 Pantoprazole Sodium [Protonix] 40 mg PO DAILY #30 tablet. 12/06/18 Simethicone [Mylicon Chewable Tablets] 80 mg PO QID PRN #1 bottle 12/06/18
[2018-12-06 12:24] VITALS: BP 102/54
== END 2018-12-06 12:40 | disposition home or self-care (01) | DRG 378 ==
LOC: ER 15:52 → MS 15:52 → OBSVTOIN 17:38 → MS 18:15
PROVIDERS: ADMIT Family Medicine; ATTEND Family Medicine
DX: E87.2 Acidosis; Z79.01 Long term (current) use of anticoagulants; I50.9 Heart failure, unspecified; J44.9 Chronic obstructive pulmonary disease, unspecified; N18.3 Chronic kidney disease, stage 3 (moderate); I48.2 Chronic atrial fibrillation; Z87.891 Personal history of nicotine dependence; R14.0 Abdominal distension (gaseous); K92.1 Melena; I13.0 Hypertensive heart and chronic kidney disease with heart failure and stage 1 through stage 4 chronic kidney disease, or unspecified chronic kidney disease
CPT/HCPCS: 36415; 71020; 71046; 74019; 74020; 74176; 80053; 82272; 83519; 83605; 83880; 84484; 85014; 85018; 85025; 93005; 94640; 94664; 96365; 99285; G0378

== ENCOUNTER 2019-10-22 00:52 | Observation (INO) ==
[2019-10-22] MEDS ORDERED: NORMAL SALINE 1,000 ML IV ONE (01:07)
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
[2019-10-22 01:23] LABS: Hematocrit 44.7 % (42.0-52.0); Hemoglobin 13.8 gm/dL (13.5-18.0); Mean Cell Volume 72.9 fl (78-100); Mean Corpuscular Hemoglobin 22.5 pg (27-31); Mean Corpuscular Hgb Conc 30.9 g/dl (32-36); Mean Platelet Volume 9.7 fl (8-11.3); Neutrophil # 7.7 K/mm3 (1.3-6.0); Neutrophil % 75.7 % (42-75.0); Platelet Count 260 K/mm3 (150-450); Red Blood Count 6.13 M/mm3 (4.7-6.0); Red Cell Distribution Width 19.7 % (11.5-14.0); White Blood Count 10.2 K/mm3 (4.0-10.5)
[2019-10-22 01:41] LABS: INR 1.22 INR (0.92-1.08); Partial Thrombolplastin Time 30.7 Seconds (24-32)
[2019-10-22 01:42] LABS: Troponin I Less than 0.017 ng/mL (0.00-0.10)
[2019-10-22 01:44] LABS: ALT 17 U/L (19-67); AST 22 U/L (0-48); Albumin * 3.5 gm/dl (3.4-5.0); Alkaline Phosphatase * 184 U/L (50-170); Anion Gap 3.8 mmol/L (6.8-13.8); BNP * 2394 pg/mL (5-350); BUN/Creatinine Ratio 19.5 (9.0-21.6); Bilirubin, Total 1.2 mg/dL (0.0-1.1); Blood Urea Nitrogen 34 mg/dL (6-23); Ca. Corrected For Albumin 8.7 mg/dL (8.4-10.2); Calcium * 8.6 mg/dL (7.9-10.9); Carbon Dioxide 42.3 mmol/L (24-32.6); Chloride 77 mmol/L (97-106); Glucose * 111 mg/dL (70-110); Sodium 121 mmol/L (132-142); Total Protein 7.1 gm/dL (6.2-8.2)
[2019-10-22 01:58] LABS: Potassium 2.1 mmol/L (3.4-4.6)
[2019-10-22] MEDS ORDERED: POTASSIUM CHLORIDE 20 MEQ TABLET.SA PO ONE (02:02)
[2019-10-22] MEDS ORDERED: POTASSIUM CHLORIDE IN WATER 100 ML IV ONE (03:00)
[2019-10-22 03:20] LABS: Urine Bilirubin Negative (NEGATIVE); Urine Blood Negative /ul (NEGATIVE); Urine Ketone Negative (NEGATIVE); Urine Nitrite Negative (NEGATIVE); Urine Protein Negative (NEGATIVE); Urine Specific Gravity <=1.005 SP.GR. (1.005-1.030); Urine Urobilinogen Normal (NORMAL)
[2019-10-22 03:25] LABS: Urine Appearance Clear (CLEAR); Urine Bacteria None Seen; Urine Color Yellow; Urine RBC None Seen /hpf (0-5); Urine WBC None Seen /hpf (0-5)
[2019-10-22] MEDS: NORMAL SALINE 1,000 ML IV PRN ×2 (05:30→18:02)
[2019-10-22] MEDS: POTASSIUM CHLORIDE IN WATER 100 ML IV SCH ×10 (05:30→21:20)
[2019-10-22 06:49] LABS: Anion Gap 1.9 mmol/L (6.8-13.8); Blood Urea Nitrogen 30 mg/dL (6-23); Calcium * 8.5 mg/dL (7.9-10.9); Carbon Dioxide 42.3 mmol/L (24-32.6); Chloride 82 mmol/L (97-106); Estimated Creat Clear 41.3; Glucose * 103 mg/dL (70-110); Sodium 124 mmol/L (132-142)
[2019-10-22 06:51] LABS: Potassium 2.2 mmol/L (3.4-4.6); Troponin I Less than 0.017 ng/mL (0.00-0.10)
[2019-10-22] MEDS ORDERED: ALBUTEROL SULFATE 2.5 MG/0.5 ML VIAL.NEB IH PRN (07:10)
[2019-10-22] MEDS ORDERED: ALPRAZolam 0.5 MG TABLET PO PRN (07:10)
[2019-10-22 07:26] LABS: Magnesium 2.7 mg/dL (1.2-2.8); Phosphorus 3.3 mg/dL (2.2-4.2)
--- NOTE | 2019-10-22 08:39 | HP ---
Chief Complaint - Chief Complaint Date of Service: 10/22/19 Time of Service: 08:39 Chief Complaint: Recurrent falls History of Present Illness: Patient with past medical history of atrial fibrillation on Eliquis, COPD, chronic colonic distention, stage III renal disease, peripheral neuropathy presented to the ER after multiple falls in the last 5 days. He is both sole caregiver for his , who has Alzheimer's dementia. Work-up in the ER showed hyponatremia with sodium of 121, hypokalemia with potassium of 2.1, hypochloremia with chloride of 77. EKG showed afib and prolonged QT. He admits to not eating or drinking much for several days, but had been taking his meds. He had multiple abrasions and skin tears, and CTs of facial bones, head, cervical spine, chest did not reveal acute fractures. On my exam this morning, he is subdued from his baseline. He received 20 mEq IV potassium, and 40 mEq p.o. potassium as well as IV fluids in the ED. His potassium increased to 2.2 and sodium increased to 124 over a time span of 5 hours. 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 CAD (coronary artery disease) Onset Date: Unknown CHF (congestive heart failure) Onset Date: Unknown COPD (chronic obstructive pulmonary disease) Onset Date: ~2012 Early satiety Onset Date: Unknown Hyperlipidemia Onset Date: Unknown Hypertension Onset Date: Unknown Hypovitaminosis D Onset Date: 01/14/17 Sleep apnea Onset Date: Unknown Spondylosis Onset Date: Unknown Carpal tunnel syndrome Onset Date: ~2011 right DVT (deep venous thrombosis) Onset Date: Unknown Diverticulitis Onset Date: ~12/2015 w/perforation Myocardial infarction Onset Date: ~2004 Prostate neoplasm Onset Date: ~2008 Stenosis of right subclavian artery Onset Date: ~03/2005 stented Surgical History: Surgical History (Last Reviewed 10/22/19 @ 05:20 by Carlota Cosme RN) H/O colonoscopy Onset Date: 05/12/19 10/26/14 [place]-negative. Recheck 10 yrs. 05/12/19 [facility]-very capacious colon. Recheck 10 yrs. H/O nasal septoplasty Onset Date: 01/10/11 [facility] H/O prostatectomy Onset Date: ~03/2009 H/O shoulder surgery Onset Date: 06/30/12 06/30/12 [place]-right repair. H/O sigmoidoscopy Onset Date: ~01/09/18 Dr. Curiel History of arthroscopic procedure on shoulder Onset Date: 05/12/12 [place]-biceps tenotomy, labral repair, sad, acrominoplasty distal clavicle excision. History of cardiac catheterization 06/20/17-right, 10/07/16-left History of cardioversion Onset Date: ~09/201605/16/11, 09/2016- Dr Vazquez History of carpal tunnel release Onset Date: 04/03/12 [place] 02/25/12-right, 04/03/12-left. History of closure of ileostomy Onset Date: 03/07/16 History of colon resection Onset Date: 01/06/16 w/colostomy History of esophagogastroduodenoscopy (EGD) Onset Date: 05[facility]12[facility], marked reactive gastropathy. 12/29/18 [facility]-w/dilation-moderately severe gastritis. [facility], mild chronic inactive gastritis. History of flexible sigmoidoscopy Onset Date: 03/07/16 [facility] Hx of radical excision of skin lesion Onset Date: 08/17/13 [place]-07/15/13-left muslim-poorly diff squamous cell ca. 08/17/13 re-excised without residual malignancy. S/P triple vessel bypass Onset Date: ~2004 Status post epidural steroid injection Onset Date: 06/04/11 12/16/08, 02/28/09, 06/04/11- C5-6, C6-7 excision of sebacous cyst Onset Date: 09/29/13 [place]-mucoid cyst right long finger hemorrhoidal banding Onset Date: 10/26/14 [place] incision and debridement Onset Date: 07/24/09 [place]-left middle finger Family History: Family History (Last Reviewed 10/22/19 @ 05:20 by Carlota Cosme RN) Brother Diabetes Father , age 75 Black lung Mother , age 83 Diabetes Heart disease Sister No problems noted. Social History: (Last Reviewed 10/22/19 @ 05:20 by Carlota Cosme RN) Social History: Marital status: household members: spouse number of children: 2 current occupational status: retired Highest education level completed: Bachelor's degree Service: No Tobacco: Smoking Status: Former smoker Alcohol: alcohol intake: current alcohol intake frequency: other Substance Use: substance use type: does not use Dietary Habits: well-balanced diet: daily or most days caffeine: Yes Personal Safety: do you feel safe at home: Yes victim of physical abuse: No victim of emotional abuse: No Review Of Systems (GEN) - Review of Systems Generalized/Overall Review: Present: Weakness Respiratory: Present: Shortness of Breath - not increased from baseline. Absent: Cough Cardiac: Absent: Chest Pain, Edema Abdominal: Present: Constipation - mild, Other - bloating. Absent: Nausea Genitourinary: Present: No Symptoms Reported Musculoskeletal: Present: No Symptoms Reported Neurological: Present: Numbness - feet, chronic Skin: Present: Other - several skin tears Immunizations: IMMUNIZATION HX Immunizations Up to Date Yes History of Influenza Vaccine Yes Hx Pneumococcal Vaccination No Allergies/Adverse Reactions: Allergies Allergy/AdvReac Type Severity Reaction Status Date / Time mometasone furoate AdvReac Mild increased Verified 10/22/19 01:16 [From Nasonex] eye pressure oxycodone [From Percocet] AdvReac Mild makes him Verified 10/22/19 01:16 "looney" Home Medications: HOME MEDICATIONS Atorvastatin Calcium [Lipitor] 40 mg PO HS 05/15/16 [Last Taken 02/08/18 16:30] Albuterol Sulfate [Ventolin Hfa] 1 puff INHALATION Q4H PRN 12/05/18 [Last Taken Unknown] Apixaban [Eliquis] 5 mg PO BID 12/05/18 [Last Taken Unknown] Latanoprost/Pf [Latanoprost 0.005% Eye Drop] 1 drp RIGHTEYE BID 12/05/18 [Last Taken Unknown] metoprolol tartrate 50 mg tablet 50 mg PO BID tab 02/02/19 [Last Taken Unknown] furosemide 20 mg tablet 40 mg PO DAILY 06/17/19 [Last Taken Unknown] alprazolam 0.5 mg tablet 0.5 mg PO HS PRN #60 tab 10/11/19 [Last Taken Unknown] pregabalin 100 mg capsule 100 mg PO TID #90 cap 10/11/19 [Last Taken Unknown] Potassium Chloride [Klor-Con M20] 20 meq PO TID 10/22/19 [Last Taken Unknown] Umeclidinium Brm/Vilanterol Tr [Anoro Ellipta 62.5-25 Mcg INH] 1 ea INHALATION DAILY 10/22/19 [Last Taken Unknown] Exam - Exam Vital Signs: Vital Signs - Last Taken Temp 35.9 C L 10/22/19 06:25 Pulse 66 10/22/19 06:25 Resp 16 10/22/19 06:25 BP 121/61 10/22/19 06:25 Pulse Ox 92 L 10/22/19 06:25 Constitutional: Present: Alert, No distress, Obese Respiratory: Present: lungs clear, normal breath sounds, other - small lung garcia Cardiovascular/Chest: Present: regular rate, rhythm Abdomen: Present: obese, distended, high pitched bowel sounds Extremity: Present: lower extremity edema Skin Exam: Present: other - several skin tears of arms Neurologic: Present: alert, other Eye contact: Present: cooperative, good eye contact Thoughts: Present: other - mood is subdued from his baseline Diagnostic Studies: Abnormal Lab Results 10/22/19 10/22/19 10/22/19 Range/Units 01:20 01:20 01:20 RBC 6.13 H (4.7-6.0) M/mm3 MCV 72.9 L (78-100) fl MCH 22.5 L (27-31) pg MCHC 30.9 L (32-36) g/dl RDW 19.7 H (11.5-14.0) % Neutrophils % 75.7 H (42-75.0) % Lymphocytes % 10.6 L (20-51) % Monocytes % 11.7 H (0.0-9) % Neutrophils # 7.7 H (1.3-6.0) K/mm3 Lymphocytes # 1.08 L (1.5-3.5) k/mm3 Monocytes # 1.2 H (0.0-1.0) k/mm3 PT 12.0 H (9.1-10.7) Seconds INR (Anticoag Therapy) 1.22 H (0.92-1.08) INR Sodium 121 L (132-142) mmol/L Plasma Sodium 121 L (130-142) mmol/L Potassium 2.1 L* D (3.4-4.6) mmol/L Chloride 77 L (97-106) mmol/L Carbon Dioxide 42.3 H (24-32.6) mmol/L Anion Gap 3.8 L (6.8-13.8) mmol/L BUN 34 H D (6-23) mg/dL Creatinine 1.74 H (0.4-1.4) mg/dL Est GFR (Non-Af Amer) 41 L (60-130) mL/min Random Glucose 111 H (70-110) mg/dL Total Bilirubin 1.2 H (0.0-1.1) mg/dL ALT 17 L (19-67) U/L Alkaline Phosphatase 184 H (50-170) U/L B-Natriuretic Peptide 2394 H (5-350) pg/mL 07/17/20 Range/Units 06:22 RBC (4.7-6.0) M/mm3 MCV (78-100) fl MCH (27-31) pg MCHC (32-36) g/dl RDW (11.5-14.0) % Neutrophils % (42-75.0) % Lymphocytes % (20-51) % Monocytes % (0.0-9) % Neutrophils # (1.3-6.0) K/mm3 Lymphocytes # (1.5-3.5) k/mm3 Monocytes # (0.0-1.0) k/mm3 PT (9.1-10.7) Seconds INR (Anticoag Therapy) (0.92-1.08) INR Sodium 124 L (132-142) mmol/L Plasma Sodium 124 L (130-142) mmol/L Potassium 2.2 L* (3.4-4.6) mmol/L Chloride 82 L (97-106) mmol/L Carbon Dioxide 42.3 H (24-32.6) mmol/L Anion Gap 1.9 L (6.8-13.8) mmol/L BUN 30 H (6-23) mg/dL Creatinine 1.67 H (0.4-1.4) mg/dL Est GFR (Non-Af Amer) 43 L (60-130) mL/min Random Glucose (70-110) mg/dL Total Bilirubin (0.0-1.1) mg/dL ALT (19-67) U/L Alkaline Phosphatase (50-170) U/L B-Natriuretic Peptide (5-350) pg/mL Laboratory Results WBC 10.2 K/mm3 (4.0-10.5) 10/22/19 01:20 RBC 6.13 M/mm3 (4.7-6.0) H 10/22/19 01:20 Hgb 13.8 gm/dL (13.5-18.0) 10/22/19 01:20 Hct 44.7 % (42.0-52.0) 10/22/19 01:20 MCV 72.9 fl (78-100) L 10/22/19 01:20 MCH 22.5 pg (27-31) L 10/22/19 01:20 MCHC 30.9 g/dl (32-36) L 10/22/19 01:20 RDW 19.7 % (11.5-14.0) H 10/22/19 01:20 Plt Count 260 K/mm3 (150-450) 10/22/19 01:20 MPV 9.7 fl (8-11.3) 10/22/19 01:20 Immature Gran % (Auto) 0.30 % (0.001-0.429) 10/22/19 01:20 Immature Gran # (Auto) 0.03 K/mm3 (0.000-0.0310) 10/22/19 01:20 Neutrophils % 75.7 % (42-75.0) H 10/22/19 01:20 Lymphocytes % 10.6 % (20-51) L 10/22/19 01:20 Monocytes % 11.7 % (0.0-9) H 10/22/19 01:20 Eosinophils % 1.2 % (0.0-3.0) 10/22/19 01:20 Basophils % 0.5 % (0.0-1.0) 10/22/19 01:20 Nucleated RBC % 0.0 k/mm3 (0-1) 10/22/19 01:20 Neutrophils # 7.7 K/mm3 (1.3-6.0) H 10/22/19 01:20 Lymphocytes # 1.08 k/mm3 (1.5-3.5) L 10/22/19 01:20 Monocytes # 1.2 k/mm3 (0.0-1.0) H 10/22/19 01:20 Eosinophils # 0.1 k/mm3 (0.0-0.7) 10/22/19 01:20 Absolute Basophils 0.1 k/mm3 (0.0-0.1) 10/22/19 01:20 PT 12.0 Seconds (9.1-10.7) H 10/22/19 01:20 INR (Anticoag Therapy) 1.22 INR (0.92-1.08) H 10/22/19 01:20 PTT (Poly) 30.7 Seconds (24-32) 10/22/19 01:20 Sodium 124 mmol/L (132-142) L 10/22/19 06:22 Plasma Sodium 124 mmol/L (130-142) L 10/22/19 06:22 Potassium 2.2 mmol/L (3.4-4.6) L* 10/22/19 06:22 Chloride 82 mmol/L (97-106) L 10/22/19 06:22 Carbon Dioxide 42.3 mmol/L (24-32.6) H 10/22/19 06:22 Anion Gap 1.9 mmol/L (6.8-13.8) L 10/22/19 06:22 BUN 30 mg/dL (6-23) H 10/22/19 06:22 Creatinine 1.67 mg/dL (0.4-1.4) H 10/22/19 06:22 Est GFR (Non-Af Amer) 43 mL/min (60-130) L 10/22/19 06:22 BUN/Creatinine Ratio 18.0 (9.0-21.6) 10/22/19 06:22 Random Glucose 103 mg/dL (70-110) 10/22/19 06:22 Lactic Acid, Venous 1.9 mmol/L (0.4-2.0) 10/22/19 01:20 Calcium 8.5 mg/dL (7.9-10.9) 10/22/19 06:22 Calcium Adj for Albumin 8.7 mg/dL (8.4-10.2) 10/22/19 01:20 Phosphorus 3.3 mg/dL (2.2-4.2) 10/22/19 06:00 Magnesium 2.7 mg/dL (1.2-2.8) 10/22/19 06:00 Total Bilirubin 1.2 mg/dL (0.0-1.1) H 10/22/19 01:20 AST 22 U/L (0-48) 10/22/19 01:20 ALT 17 U/L (19-67) L 10/22/19 01:20 Alkaline Phosphatase 184 U/L (50-170) H 10/22/19 01:20 Troponin I Less than 0.017 ng/mL (0.00-0.10) 10/22/19 06:22 B-Natriuretic Peptide 2394 pg/mL (5-350) H 10/22/19 01:20 Total Protein 7.1 gm/dL (6.2-8.2) 10/22/19 01:20 Albumin 3.5 gm/dl (3.4-5.0) 10/22/19 01:20 Urine Color Yellow 10/22/19 03:16 Urine Appearance Clear (CLEAR) 10/22/19 03:16 Urine pH 7.0 pH (5.0-7.0) 10/22/19 03:16 Ur Specific [place] <=1.005 SP.GR. (1.005-1.030) 10/22/19 03:16 Urine Protein Negative mg/dL (NEGATIVE) 10/22/19 03:16 Urine Glucose (UA) Negative mg/dL (NEGATIVE) 10/22/19 03:16 Urine Ketones Negative mg/dL (NEGATIVE) 10/22/19 03:16 Urine Blood Negative /ul (NEGATIVE) 10/22/19 03:16 Urine Nitrate Negative (NEGATIVE) 10/22/19 03:16 Urine Bilirubin Negative mg/dl (NEGATIVE) 10/22/19 03:16 Urine Urobilinogen Normal EU/dl (NORMAL) 10/22/19 03:16 Ur Leukocyte Esterase Negative /ul (NEGATIVE) 10/22/19 03:16 Urine RBC None seen /hpf (0-5) 10/22/19 03:16 Urine WBC None seen /hpf (0-5) 10/22/19 03:16 Ur Epithelial Cells None seen /hpf (0-5) 10/22/19 03:16 Urine Bacteria None seen (NONE) 10/22/19 03:16 Urine Culture Comments No culture indicated 10/22/19 03:16 SARS-CoV-2 (PCR) Not detected (ND) 10/22/19 03:10 Assessment/Plan - Assessment/Plan (1) Recurrent falls Assessment: Likely due to his electrolyte abnormalities. WBC normal, afebrile. Urine normal. No acute findings found on his head CT. PT eval pending for tomorrow, after his electrolytes have been replaced. He is prescribed a benzodiazepine nightly for insomnia, but his falls have been happening during the day. If his electrolytes normalized with IV replacement, and he does okay with a PT eval tomorrow, he could potentially discharge home tomorrow. He is the sole caregiver for his , though with his multiple medical problems, this is extremely difficult. He reports his had an appointment today with [employer] to try to get more help. Problem: Acute (2) Electrolyte imbalance Assessment: Multiple electrolyte abnormalities (hyponatremia, hypokalemia, hypo-chloremia) are likely the source of his recent fall. I anticipate this is due to decreased p.o. intake lately. Problem: Acute (3) Hypokalemia Assessment: He is prescribed 20 mEq 3 times daily, and reports taking his medicine as prescribed this week. His p.o. intake has been decreased. Initial K+ level was 2.1, repeat was 2.2 after 20 mEq IV and 40 mEq po. An additional 40 mEq ordered IV, and restarted his home 20 mEq tid. Next CMP pending for this afternoon. He has a history of partial colon resection, so his absorption may be somewhat limited. Problem: Acute (4) Acute hyponatremia Assessment: Initial sodium level of 121, improved to 124 with normal saline. We will continue saline replacement, and recheck this afternoon. His mentation appears to be close to his baseline, though he is somewhat subdued in his interactions with me. Problem: Acute (5) Hypochloremia Problem: Acute (6) Chronic renal insufficiency, stage III (moderate) Assessment: Admission GFR was 41, which is close to his baseline. He follows with nephrology. Magnesium and phosphorus were normal, and potassium is not elevated, so I do not believe his renal insufficiency today is increased from his baseline. Problem: Chronic (7) Chronic a-fib Assessment: Continue metoprolol and Eliquis. Heart rate is currently controlled. Problem: Acute (8) Colon distention Assessment: Patient has a history of previous partial colon resection for diverticulitis. Ever since that surgery, he has had chronic colon distention and is seen multiple specialists. The distention is significant enough that presses up on his diaphragm, causing shortness of breath. Problem: Chronic (9) COPD (chronic obstructive pulmonary disease) Problem: Chronic Qualifiers: COPD type: unspecified COPD Qualified Code(s): J44.9 - Chronic obstructive pulmonary disease, unspecified (10) RONQUILLO (dyspnea on exertion) Problem: Chronic
[2019-10-22] MEDS: APIXABAN 5 MG TABLET PO SCH ×2 (10:51→20:42)
[2019-10-22] MEDS: POTASSIUM CHLORIDE 20 MEQ TABLET.SA PO SCH ×3 (10:51→18:10)
[2019-10-22] MEDS: TIOTROPIUM BROMIDE 5 CAP INHALER IH SCH (10:54)
[2019-10-22] MEDS ORDERED: ACETAMINOPHEN 325 MG TABLET PO PRN (10:59)
[2019-10-22] MEDS: METOPROLOL TARTRATE 50 MG TABLET PO SCH ×2 (10:59→20:42)
[2019-10-22] MEDS: FORMOTEROL FUMARATE 20 MCG/2 ML VIAL IH SCH ×2 (13:30→18:09)
[2019-10-22 14:39] LABS: Albumin * 3.3 gm/dl (3.4-5.0); Anion Gap 2.7 mmol/L (6.8-13.8); BUN/Creatinine Ratio 17.3 (9.0-21.6); Bilirubin, Total 0.9 mg/dL (0.0-1.1); Ca. Corrected For Albumin 8.8 mg/dL (8.4-10.2); Calcium * 8.6 mg/dL (7.9-10.9); Potassium 2.7 mmol/L (3.4-4.6); Total Protein 6.8 gm/dL (6.2-8.2)
[2019-10-22] MEDS: PREGABALIN 50 MG CAPSULE PO SCH (23:33)
[2019-10-23] MEDS: NORMAL SALINE 1,000 ML IV PRN (04:09)
[2019-10-23] MEDS: FORMOTEROL FUMARATE 20 MCG/2 ML VIAL IH SCH (06:00)
[2019-10-23 07:00] LABS: Albumin * 3.2 gm/dl (3.4-5.0); Anion Gap 4.2 mmol/L (6.8-13.8); BUN/Creatinine Ratio 16.1 (9.0-21.6); Bilirubin, Total 0.8 mg/dL (0.0-1.1); Calcium * 8.7 mg/dL (7.9-10.9); Carbon Dioxide 36.8 mmol/L (24-32.6); Total Protein 6.5 gm/dL (6.2-8.2)
[2019-10-23] MEDS: TIOTROPIUM BROMIDE 5 CAP INHALER IH SCH (08:13)
[2019-10-23] MEDS: METOPROLOL TARTRATE 50 MG TABLET PO SCH (08:13)
[2019-10-23] MEDS: PREGABALIN 50 MG CAPSULE PO SCH (08:14)
[2019-10-23] MEDS: POTASSIUM CHLORIDE 20 MEQ TABLET.SA PO SCH (08:14)
[2019-10-23] MEDS: APIXABAN 5 MG TABLET PO SCH (08:14)
[2019-10-23] MEDS ORDERED: SPIRONOLACTONE 25 MG TABLET PO SCH (10:45)
[2019-10-23] MEDS ORDERED: LISINOPRIL 10 MG TABLET PO SCH (10:45)
--- NOTE | 2019-10-23 10:52 | DS ---
(1) Syncope and collapse Problem: Acute (2) Acute hyponatremia Problem: Acute (3) Hypokalemia Problem: Acute (4) Electrolyte imbalance Problem: Acute (5) Recurrent falls Problem: Acute (6) Lower extremity edema Problem: Chronic (7) Chronic a-fib Problem: Acute (8) Chronic renal insufficiency, stage III (moderate) Problem: Chronic (9) Iron deficiency Problem: Suspected Date of Discharge:: 10/23/19 Hospital Course: Patient with past medical history of atrial fibrillation on Eliquis, COPD, chronic colonic distention, stage III renal disease, peripheral neuropathy presented to the ER after multiple falls in the last 5 days. He is both sole caregiver for his , who has Alzheimer's dementia. Work-up in the ER showed hyponatremia with sodium of 121, hypokalemia with potassium of 2.1, hypochloremia with chloride of 77. EKG showed afib and prolonged QT. He admits to not eating or drinking much for several days, but had been taking his meds. He had multiple abrasions and skin tears, and CTs of facial bones, head, cervical spine, chest did not reveal acute fractures. On my exam this morning, he is subdued from his baseline. He received 20 mEq IV potassium, and 40 mEq p.o. potassium as well as IV fluids in the ED. His potassium increased to 2.2 and sodium increased to 124 over a time span of 5 hours. This morning's potassium is 3.0 and sodium is 131. His CBC shows hemoglobin and hematocrit are normal but his MCV is only 72 and his RDW is elevated at 19 suggesting iron deficiency. Iron studies are ordered but are not yet available for this dictation. He has been up and ambulatory although feels unsteady enough that he needs to use his walker. He is fully alert and lucent and conversational. He has eaten a good breakfast. He is going to take a shower this morning. He feels that he is strong enough to go home and he has good family support from children to help he and his . His has progressive fairly advanced Alzheimer's disease which creates quite a lot of difficulties for him. He is willing to go home with home health and so I will arrange that with our [facility] service. He will need physical therapy and possibly occupational therapy. They will also need to draw blood in 1 week to recheck his electrolytes including magnesium. He will follow with Dr. Jackson. [id number] for encounter for home health: Go Ambriz is a 73-year-old male who is confined to home due to motor weakness. He has had many falls at home and has many bruises to prove it. He has a two-story home with 18 stairs to the second floor where his shower is. At this time he is too weak to negotiate the stairs. He needs jail for monitoring his vital signs, his electrolytes, and for education regarding congestive heart failure, renal insufficiency, and medications. He will need physical therapy for limb strengthening, gait training, and balance training. He also could use dietary assistance as he wants to lose weight but finds it difficult since he cannot exercise at this time sufficiently to help him lose weight. He may also need some psychological support because of his 's progressive Alzheimer's dementia. The need for occupational therapy is for improved upper extremity strengthening and coordination and to decrease his fall risk. Can also improve his safety awareness and observe for architectural barriers. He will not require speech therapy. The need for home health care skilled services is directly related to the time spent [id number] with Mr. Ambriz. Procedures Performed: none Results and Findings: Lab Pending Results 10/22/19 01:20: WBC 10.2, RBC 6.13 H, Hgb 13.8, Hct 44.7, MCV 72.9 L, MCH 22.5 L, MCHC 30.9 L, RDW 19.7 H, Plt Count 260, MPV 9.7, Immature Gran % (Auto) 0.30, Immature Gran # (Auto) 0.03, Neutrophils % 75.7 H, Lymphocytes % 10.6 L, Monocytes % 11.7 H, Eosinophils % 1.2, Basophils % 0.5, Nucleated RBC % 0.0, Neutrophils # 7.7 H, Lymphocytes # 1.08 L, Monocytes # 1.2 H, Eosinophils # 0.1, Absolute Basophils 0.1 10/22/19 01:20: PT 12.0 H, INR (Anticoag Therapy) 1.22 H, PTT ([place]) 30.7 10/22/19 01:20: Sodium 121 L, Plasma Sodium 121 L, Potassium 2.1 L* D, Chloride 77 L, Carbon Dioxide 42.3 H, Anion Gap 3.8 L, BUN 34 H D, Creatinine 1.74 H, Est GFR (Non-Af Amer) 41 L, BUN/Creatinine Ratio 19.5, Random Glucose 111 H, Calcium 8.6, Calcium Adj for Albumin 8.7, Total Bilirubin 1.2 H, AST 22, ALT 17 L, Al kaline Phosphatase 184 H, Troponin I Less than 0.017, B-Natriuretic Peptide 2394 H, Total Protein 7.1, Albumin 3.5 10/22/19 01:20: Lactic Acid, Venous 1.9 10/22/19 03:10: SARS-CoV-2 (PCR) Not detected 10/22/19 03:16: Urine Color Yellow, Urine Appearance Clear, Urine pH 7.0, Ur Specific [place] <=1.005, Urine Protein Negative, Urine Glucose (UA) Negative, Urine Ketones Negative, Urine Blood Negative, Urine Nitrate Negative, Urine Bilirubin Negative, Urine Urobilinogen Normal, Ur Leukocyte Esterase Negative, Urine RBC None seen, Urine WBC None seen, Ur Epithelial Cells None seen, Urine Bacteria None seen, Urine Culture Comments No culture indicated 10/22/19 06:00: Phosphorus 3.3, Magnesium 2.7 10/22/19 06:22: Sodium 124 L, Plasma Sodium 124 L, Potassium 2.2 L*, Chloride 82 L, Carbon Dioxide 42.3 H, Anion Gap 1.9 L, BUN 30 H, Creatinine 1.67 H, Est GFR (Non-Af Amer) 43 L, BUN/Creatinine Ratio 18.0, Random Glucose 103, Calcium 8.5, Troponin I Less than 0.017 10/22/19 14:23: Sodium 123 L, Plasma Sodium 123 L, Potassium 2.7 L D, Chloride 83 L, Carbon Dioxide 40.0 H, Anion Gap 2.7 L, BUN 28 H, Creatinine 1.62 H, Est GFR (Non-Af Amer) 45 L, BUN/Creatinine Ratio 17.3, Random Glucose 106, Calcium 8.6, Calcium Adj for Albumin 8.8, Total Bilirubin 0.9, AST 20, ALT 16 L, Alkaline Phosphatase 180 H, Total Protein 6.8, Albumin 3.3 L 10/23/19 06:38: Sodium 131 L, Plasma Sodium 131, Potassium 3.0 L, Chloride 93 L, Carbon Dioxide 36.8 H, Anion Gap 4.2 L, BUN 23, Creatinine 1.43 H, Est GFR (Non- Af Amer) 52 L, BUN/Creatinine Ratio 16.1, Random Glucose 95, Calcium 8.7, Calcium Adj for Albumin 9.0, Total Bilirubin 0.8, AST 19, ALT 11 L, Alkaline Phosphatase 169, Total Protein 6.5, Albumin 3.2 L Discharge Location: Home Disposition: Home Health Service Home Health Agency: [facility] Home Health Condition: Stable Face to Face Encounter completed per [facility] Guidelines: Yes Discharge Activity: Activity as tolerated Discharge Diet: Resume usual diet Additional Patient Instructions (free text): Eat potassium containing foods such as bananas and kiwi. Home health to draw a BMP in 1 week. Complete Home Medications List: Complete Home Medication List: Atorvastatin Calcium [Lipitor] 40 mg PO HS 05/15/16 Albuterol Sulfate [Ventolin Hfa] 1 puff INHALATION Q4H PRN 12/05/18 Apixaban [Eliquis] 5 mg PO BID 12/05/18 Latanoprost/Pf [Latanoprost 0.005% Eye Drop] 1 drp RIGHTEYE BID 12/05/18 metoprolol tartrate 50 mg tablet 50 mg PO BID tab 02/02/19 furosemide 20 mg tablet 40 mg PO DAILY 06/17/19 alprazolam 0.5 mg tablet 0.5 mg PO HS PRN #60 tab 10/11/19 pregabalin 100 mg capsule 100 mg PO TID #90 cap 10/11/19 Potassium Chloride [Klor-Con M20] 20 meq PO TID 10/22/19 Umeclidinium Brm/Vilanterol Tr [Anoro Ellipta 62.5-25 Mcg INH] 1 ea INHALATION DAILY 10/22/19 Acetaminophen [Tylenol] 325 mg PO Q6H PRN tab 10/23/19 Forms: Patient Portal Registration
[2019-10-23 11:13] LABS: Magnesium 2.7 mg/dL (1.2-2.8)
[2019-10-23 11:23] LABS: Iron 21 mcg/dL (35-120); Transferrin Sat. (% Sat.) 6 % (15-55)
[2019-10-23 12:51] VITALS: BP 92/49
== END 2019-10-23 12:20 | disposition home or self-care (01) ==
LOC: ER 00:52 → MS 00:52
PROVIDERS: ADMIT Family Medicine; ATTEND Family Medicine
DX: I13.0 Hypertensive heart and chronic kidney disease with heart failure and stage 1 through stage 4 chronic kidney disease, or unspecified chronic kidney disease; W01.0XXA Fall on same level from slipping, tripping and stumbling without subsequent striking against object, initial encounter; Z91.81 History of falling; R29.6 Repeated falls; R55 Syncope and collapse; Z11.59 Encounter for screening for other viral diseases; S00.93XA Contusion of unspecified part of head, initial encounter; I50.9 Heart failure, unspecified; E87.1 Hypo-osmolality and hyponatremia; Z87.891 Personal history of nicotine dependence; Z79.01 Long term (current) use of anticoagulants; I25.10 Atherosclerotic heart disease of native coronary artery without angina pectoris; I48.20 Chronic atrial fibrillation, unspecified; N18.3 Chronic kidney disease, stage 3 (moderate); E87.6 Hypokalemia; S51.802A Unspecified open wound of left forearm, initial encounter
CPT/HCPCS: 36415; 70450; 70486; 71250; 72125; 80048; 80053; 81001; 82728; 83519; 83540; 83550; 83605; 83735; 83880; 84100; 84484; 85025; 85610; 85730; 93005; 96361; 96365; 96366; 97161; 99285; G0378

== ENCOUNTER 2020-02-09 07:29 | Inpatient (IN) ==
--- NOTE | 2020-02-09 07:39 | ERNOTE ---
<Meenakshi Burns - Last Filed: 02/09/20 08:22> Medical Problem HPI - General Time Seen by Provider: 02/09/20 07:37 Source: patient, EMS, RN notes reviewed Exam Limitations: no limitations - Immun/Allergies/Home Medications Immunizations: IMMUNIZATION HX Immunizations Up to Date Yes History of Influenza Vaccine Yes Hx Pneumococcal Vaccination No Allergies/Adverse Reactions: Allergies mometasone furoate [From Nasonex] Adverse Reaction (Mild, Verified 02/09/20 07:31) increased eye pressure oxycodone [From Percocet] Adverse Reaction (Mild, Verified 02/09/20 07:31) makes him "looney" makes him "looney" Home Medications: HOME MEDICATIONS Atorvastatin Calcium [Lipitor] 40 mg PO HS 05/15/16 [Last Taken 02/08/18 16:30] Albuterol Sulfate [Ventolin Hfa] 1 puff INHALATION Q4H PRN 12/05/18 [Last Taken Unknown] Apixaban [Eliquis] 5 mg PO BID 12/05/18 [Last Taken Unknown] Latanoprost/Pf [Latanoprost 0.005% Eye Drop] 1 drp RIGHTEYE BID 12/05/18 [Last Taken Unknown] furosemide 20 mg tablet 40 mg PO DAILY 06/17/19 [Last Taken Unknown] Umeclidinium Brm/Vilanterol Tr [Anoro Ellipta 62.5-25 Mcg INH] 1 ea INHALATION DAILY 10/22/19 [Last Taken Unknown] Acetaminophen [Tylenol] 325 mg PO Q6H PRN tab 10/23/19 [Last Taken Unknown] potassium chloride 20 mEq tablet,extended release(part/cryst) 20 meq PO TID #90 tab 10/25/19 [Last Taken Unknown] ferrous sulfate 325 mg (65 mg iron) tablet 325 mg PO DAILY #90 tab 11/05/19 [Las t Taken Unknown] pregabalin 150 mg capsule 150 mg PO TID #90 cap 01/07/20 [Last Taken Unknown] metoprolol tartrate 50 mg tablet 25 mg PO BID #90 tab 02/03/20 [Last Taken Unknown] alprazolam 0.5 mg tablet 0.5 mg PO HS PRN #60 tab 02/08/20 [Last Taken Unknown] - History of Present History Narrative: Patient is brought in by EMS after falling multiple times yesterday and then again this morning. EMS report stated patient fell around 11 times yesterday and then fell again this AM. Patient states that he fell 5 times altogether, 4 yesterday and once today. Patient does not have any idea why he keeps falling. EMS also reported that his blood glucose was 63 so they gave him glucose in the ambulance. Patient is pleasant and cheerful, and has no idea why he keeps falling down. 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 Absent: eye pain, eye discharge ENT: Absent: ear pain, nasal drainage, sore throat Respiratory: Absent: cough, wheezing Cardiology: Absent: chest pain, palpitations Gastrointestinal/Abdominal: Absent: nausea, diarrhea, abdominal pain Genitourinary: Absent: frequency, pain, dysuria Musculoskeletal: Absent: back pain, muscle pain, neck pain Skin: Absent: rash, lesions Neurological: Absent: anxiety, depressed Psych: Absent: anxiety, depressed Medical History (Last Reviewed 02/09/20 @ 08:16 by Meenakshi Burns) COPD (chronic obstructive pulmonary disease) (Chronic) Hypokalemia (Resolved) RONQUILLO (dyspnea on exertion) (Chronic) Neck pain (Chronic) Pneumothorax Rib fracture Subclavian arterial stenosis Onset Date: Unknown Atrial fibrillation Onset Date: Unknown Blindness, 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 CAD (coronary artery disease) Onset Date: Unknown CHF (congestive heart failure) Onset Date: Unknown COPD (chronic obstructive pulmonary disease) Onset Date: ~2012 Early satiety Onset Date: Unknown Hyperlipidemia Onset Date: Unknown Hypertension Onset Date: Unknown Hypovitaminosis D Onset Date: 01/14/17 Sleep apnea Onset Date: Unknown Spondylosis Onset Date: Unknown Carpal tunnel syndrome Onset Date: ~2011 right DVT (deep venous thrombosis) Onset Date: Unknown Diverticulitis Onset Date: ~12/2015 w/perforation Myocardial infarction Onset Date: ~2004 Prostate neoplasm Onset Date: ~2008 Stenosis of right subclavian artery Onset Date: ~03/2005 stented Surgical History: Surgical History (Last Reviewed 02/09/20 @ 08:16 by Meenakshi Burns) H/O colonoscopy Onset Date: 05/12/19 10/26/14 [facility]-negative. Recheck 10 yrs. 05/12/19 [facility]-very capacious colon. Recheck 10 yrs. H/O nasal septoplasty Onset Date: 01/10/11 [facility] H/O prostatectomy Onset Date: ~03/2009 H/O shoulder surgery Onset Date: 06/30/12 06/30/12 [place]-right repair. H/O sigmoidoscopy Onset Date: ~01/09/18 Dr. Curiel History of arthroscopic procedure on shoulder Onset Date: 05/12/12 [place]-biceps tenotomy, labral repair, sad, acrominoplasty distal clavicle excision. History of cardiac catheterization 06/20/17-right, 10/07/16-left History of cardioversion Onset Date: ~09/201605/16/11, 09/2016- Dr Vazquez History of carpal tunnel release Onset Date: 04/03/12 [place] 02/25/12-right, 04/03/12-left. History of closure of ileostomy Onset Date: 03/07/16 History of colon resection Onset Date: 01/06/16 w/colostomy History of esophagogastroduodenoscopy (EGD) Onset Date: 05/12/19 02/19/17 [facility]-clotest negative, marked reactive gastropathy. 12/29/18 [facility]-w/dilation-moderately severe gastritis. 05/12/19 [facility]-clotest negative, mild chronic inactive gastritis. History of flexible sigmoidoscopy Onset Date: 03/07/16 [facility] Hx of radical excision of skin lesion Onset Date: 08/17/13 [facility]-07/15/13-left congregational-poorly diff squamous cell ca. 08/17/13 re-excised without residual malignancy. S/P triple vessel bypass Onset Date: ~2004 Status post epidural steroid injection Onset Date: 06/04/11 12/16/08, 02/28/09, 06/04/11- C5-6, C6-7 excision of sebacous cyst Onset Date: 09/29/13 [place]-mucoid cyst right long finger hemorrhoidal banding Onset Date: 10/26/14 [place] incision and debridement Onset Date: 07/24/09 [place]-left middle finger Family History: Family History (Last Reviewed 02/09/20 @ 08:16 by Meenakshi Burns) Brother Diabetes Father , age 75 Black lung Mother , age 83 Diabetes Heart disease Sister No problems noted. Social History: (Last Reviewed 02/09/20 @ 08:16 by Meenakshi Burns) Social History: Marital status: household members: spouse number of children: 2 current occupational status: retired Highest education level completed: Bachelor's degree Service: No Tobacco: Smoking Status: Former smoker Alcohol: alcohol intake: current alcohol intake frequency: other Substance Use: substance use type: does not use Dietary Habits: well-balanced diet: daily or most days caffeine: Yes Personal Safety: do you feel safe at home: Yes victim of physical abuse: No victim of emotional abuse: No Physical Exam - Physical Exam General Appearance: Present: wd/wn, alert, no apparent distress Head Exam: Present: contusions, other - abrasions Eye Exam: Normal inspection: right, PERRL: right, EOMI: bilateral, Abnormal pupil: left - irregular shape secondary to accident Ears, Nose, Throat: Present: normal ENT inspection, normal pharynx Respiratory: Present: no respiratory distress, normal breath sounds, no accessory muscle use, chest nontender, lungs clear Gastrointestinal/Abdominal: Present: normal bowel sounds, nontender, nondist ended, soft Extremity Exam: Present: normal inspection, non-tender, normal range of motion Neurological Exam: Present: alert, oriented, normal mood/affect, no motor/sensory deficits Skin Exam: Present: normal color, warm/dry Progress - Vital Signs Patient's Vital Signs:: I have reviewed the patient's vital signs. Vital Signs: Vital Signs Temp Pulse Resp BP Pulse Ox 36.3 C 90 16 96/61 86 L 02/09/20 07:30 02/09/20 07:54 02/09/20 07:30 02/09/20 07:30 02/09/20 07:30 - Progress/Reassessment Progress Note-Subjective: 02/09/20 08:19 Patient resting comfortably. Care being turned over to Dr. Tamayo at shift change. - Transfer of Care Physician Sign Out: Meenakshi Burns Receiving Physician: Willie Tamayo Pending Results: CT/MRI results, Labs Expected Disposition: Admit Departure Clinical Impression: Recurrent falls while walking, Acute hyponatremia, Hypochloremia, Hypokalemia - Departure Disposition: Still a patient Condition: Good <Willie Tamayo - Last Filed: 02/09/20 11:35> Medical Problem HPI - Immun/Allergies/Home Medications Immunizations: IMMUNIZATION HX Immunizations Up to Date Yes History of Influenza Vaccine No Hx Pneumococcal Vaccination No Medical History (Last Reviewed 02/09/20 @ 08:16 by Meenakshi Burns) COPD (chronic obstructive pulmonary disease) (Chronic) Hypokalemia (Resolved) RONQUILLO (dyspnea on exertion) (Chronic) Neck pain (Chronic) Pneumothorax Rib fracture Subclavian arterial stenosis Onset Date: Unknown Atrial fibrillation Onset Date: Unknown Blindness, 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 CAD (coronary artery disease) Onset Date: Unknown CHF (congestive heart failure) Onset Date: Unknown COPD (chronic obstructive pulmonary disease) Onset Date: ~2012 Early satiety Onset Date: Unknown Hyperlipidemia Onset Date: Unknown Hypertension Onset Date: Unknown Hypovitaminosis D Onset Date: 01/14/17 Sleep apnea Onset Date: Unknown Spondylosis Onset Date: Unknown Carpal tunnel syndrome Onset Date: ~2011 right DVT (deep venous thrombosis) Onset Date: Unknown Diverticulitis Onset Date: ~12/2015 w/perforation Myocardial infarction Onset Date: ~2004 Prostate neoplasm Onset Date: ~2008 Stenosis of right subclavian artery Onset Date: ~03/2005 stented Surgical History: Surgical History (Last Reviewed 02/09/20 @ 08:16 by Meenakshi Burns) H/O colonoscopy Onset Date: 05/12/19 10/26/14 [facility]-negative. Recheck 10 yrs. 05/12/19 [facility]-very capacious colon. Recheck 10 yrs. H/O nasal septoplasty Onset Date: 01/10/11 [facility] H/O prostatectomy Onset Date: ~03/2009 H/O shoulder surgery Onset Date: 06/30/12 06/30/12 [place]-right repair. H/O sigmoidoscopy Onset Date: ~01/09/18 Dr. Curiel History of arthroscopic procedure on shoulder Onset Date: 05/12/12 [place]-biceps tenotomy, labral repair, sad, acrominoplasty distal clavicle excision. History of cardiac catheterization 06/20/17-right, 10/07/16-left History of cardioversion Onset Date: ~09/201605/16/11, 09/2016- Dr Vazquez History of carpal tunnel release Onset Date: 04/03/12 [place] 02/25/12-right, 04/03/12-left. History of closure of ileostomy Onset Date: 03/07/16 History of colon resection Onset Date: 01/06/16 w/colostomy History of esophagogastroduodenoscopy (EGD) Onset Date: 05/12/19 02/19/17 [place]-clotest negative, marked reactive gastropathy. 12/29/18 [facility]-w/dilation-moderately severe gastritis. 05/12/19 [facility]-clotest negativ e, mild chronic inactive gastritis. History of flexible sigmoidoscopy Onset Date: 03/07/16 [facility]x of [facility] excision of skin lesion [facility]: [facility]-poorly diff squamous cell ca. 08/17/13 re-excised without residual malignancy. S/P triple vessel bypass Onset Date: ~2004 Status post epidural steroid injection Onset Date: 06/04/11 12/16/08, 02/28/09, 06/04/11- C5-6, C6-7 excision of sebacous cyst Onset Date: 09/29/13 [place]-mucoid cyst right long finger hemorrhoidal banding Onset Date: 10/26/14 [place] incision and debridement Onset Date: 07/24/09 [place]-left middle finger Family History: Family History (Last Reviewed 02/09/20 @ 08:16 by Meenakshi Burns) Brother Diabetes Father , age 75 Black lung Mother , age 83 Heart disease Diabetes Sister No problems noted. Social History: (Last Reviewed 02/09/20 @ 08:16 by Meenakshi Burns) Social History: Marital status: household members: spouse number of children: 2 current occupational status: retired Highest education level completed: Bachelor's degree Service: No Tobacco: Smoking Status: Former smoker Alcohol: alcohol intake: current alcohol intake frequency: other Substance Use: substance use type: does not use Dietary Habits: well-balanced diet: daily or most days caffeine: Yes Personal Safety: do you feel safe at home: Yes victim of physical abuse: No victim of emotional abuse: No Progress - Results and Orders Patient's Lab Results:: I have reviewed the patient's lab results. Results and Orders: Laboratory Tests 02/09/20 02/09/20 02/09/20 08:20 08:20 08:20 WBC 6.9 Hgb 16.5 Hct 50.9 Plt Count 171 Neutrophils % 79.7 H PT 12.8 H INR (Anticoag Therapy) 1.31 H PTT (Poly) 30.3 Potassium 2.4 L* D Chloride 81 L Carbon Dioxide 39.3 H Anion Gap 6.1 L BUN 27 H Creatinine 1.64 H Random Glucose 137 H Calcium 8.8 Total Bilirubin 1.2 H AST 23 ALT 14 L Alkaline Phosphatase 186 H Laboratory Tests 02/09/20 09:25 SARS-CoV-2 (PCR) Not detected - Vital Signs Vital Signs: Vital Signs 02/09/20 07:30 02/09/20 07:41 02/09/20 07:54 Temperature 36.3 C Pulse Rate 75 88 90 Respiratory Rate 16 Blood Pressure 96/61 O2 Sat by Pulse Oximetry 86 L 02/09/20 08:11 Temperature Pulse Rate 68 Respiratory Rate 17 Blood Pressure 116/49 O2 Sat by Pulse Oximetry 91 L - EKG EKG #1 EKG: atrial fibrillation, nonspecific ST T wave changes EKG read: Interp. by me - X-Ray X-Ray #1 X-Ray: chest Interpretation: Reviewed by me X-ray Comments: Findings: There is borderline cardiomegaly. There are postoperative changes from an apparent CABG. Vascularity appears within normal limits. There is some scarring in the left lung base. There are no focal infiltrates or effusions on this single view. IMPRESSION: BORDERLINE CARDIOMEGALY. OTHER CHRONIC FINDINGS DISCUSSED. Electronically signed by Froy Omer M.D.. - CT/Ultrasound CT/Ultrasound Narrative: CT head without: Findings: Patient has cavum septum pellucidum. This is an anatomic variant. There is mild diffuse atrophy. There are scattered white matter low densities compatible with white matter microvascular ischemic disease. There are no focal abnormal hypodensities to suggest vascular territory infarct. Follow-up with head MRI as clinically indicated. There is no positive mass effect or midline shift. There is no evidence for intracranial hemorrhage. Visualized paranasal sinuses and mastoid air cells appear adequately aerated. There are atherosclerotic calcifications. IMPRESSION: CHRONIC FINDINGS DISCUSSED. NO ACUTE INTRACRANIAL PATHOLOGY IDENTIFIED. Electronically signed by Froy Omer M.D.. - Progress/Reassessment Progress Note-Subjective: 02/09/20 09:03 I spoke to the patient about his electrolyte abnormalities and the previous episode in October. He states he was just seen by Dr. Jackson last week and his electrolytes were normal. Previous lab results were compared and certainly this is an acute electrolyte disturbance as they were normal 5 days ago 02/09/20 09:[address] Jackson she agrees with admission for hyponatremia, hypokalemia and other electrolyte abnormalities. Preadmit Covid testing in process Willie Tamayo DO, FAAFP
[2020-02-09 08:35] LABS: Hematocrit 50.9 % (42.0-52.0); Hemoglobin 16.5 gm/dL (13.5-18.0); Mean Cell Volume 74.6 fl (78-100); Mean Corpuscular Hemoglobin 24.2 pg (27-31); Mean Corpuscular Hgb Conc 32.4 g/dl (32-36); Mean Platelet Volume 11.1 fl (8-11.3); Neutrophil # 5.5 K/mm3 (1.3-6.0); Neutrophil % 79.7 % (42-75.0); Platelet Count 171 K/mm3 (150-450); Red Blood Count 6.82 M/mm3 (4.7-6.0); Red Cell Distribution Width 17.9 % (11.5-14.0); White Blood Count 6.9 K/mm3 (4.0-10.5)
[2020-02-09 08:36] LABS: Prothrombin Time (Patient) 12.8 Seconds (9.1-10.7)
[2020-02-09 08:38] LABS: INR 1.31 INR (0.92-1.08); Partial Thrombolplastin Time 30.3 Seconds (24-32)
[2020-02-09 08:39] LABS: Albumin * 3.8 gm/dl (3.4-5.0); BUN/Creatinine Ratio 16.5 (9.0-21.6); Bilirubin, Total 1.2 mg/dL (0.0-1.1); Ca. Corrected For Albumin 8.6 mg/dL (8.4-10.2); Calcium * 8.8 mg/dL (7.9-10.9); Carbon Dioxide 39.3 mmol/L (24-32.6); Total Protein 7.4 gm/dL (6.2-8.2)
[2020-02-09 08:47] LABS: Anion Gap 6.1 mmol/L (6.8-13.8)
[2020-02-09 08:49] LABS: Potassium 2.4 mmol/L (3.4-4.6)
[2020-02-09] MEDS ORDERED: NORMAL SALINE 1,000 ML IV ONE (09:02)
[2020-02-09] MEDS ORDERED: POTASSIUM BICARBONATE/CIT AC 25 MEQ TABLET.EFF PO ONE (10:35)
[2020-02-09] MEDS ORDERED: ALBUTEROL SULFATE 2.5 MG/0.5 ML VIAL.NEB IH PRN (11:07)
[2020-02-09] MEDS: ACETAMINOPHEN 325 MG TABLET PO PRN (13:28)
--- NOTE | 2020-02-09 14:01 | HP ---
Chief Complaint - Chief Complaint Date of Service: 02/09/20 Time of Service: 14:00 Chief Complaint: several falls History of Present Illness: Patient with extensive past medical history including chronic kidney disease, atrial fibrillation, COPD, neuropathy presented to the ED after multiple falls at home. He was seen in my office last week, and labwork was normal. Labwork today showed several electrolyte abnormalities, including hyponatremia with Na+ of 124, hypokalemia with K+ of 2.4, and hypochloremia with Cl- of 81. His potassium supplement was reduced last week from 20 mEq tid to bid, but otherwise, no recent med changes. He is losing weight using nutrisystem, and has lost 30 pounds in the last few months. Other than weakness, he has no other new symptoms. COVID negative. He did not sustain significant injuries when he fell. He reports suddenly losing strength in his legs, precipitating his falls. 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 CAD (coronary artery disease) Onset Date: Unknown CHF (congestive heart failure) Onset Date: Unknown COPD (chronic obstructive pulmonary disease) Onset Date: ~2012 Early satiety Onset Date: Unknown Hyperlipidemia Onset Date: Unknown Hypertension Onset Date: Unknown Hypovitaminosis D Onset Date: 01/14/17 Sleep apnea Onset Date: Unknown Spondylosis Onset Date: Unknown Carpal tunnel syndrome Onset Date: ~2011 right DVT (deep venous thrombosis) Onset Date: Unknown Diverticulitis Onset Date: ~12/2015 w/perforation Myocardial infarction Onset Date: ~2004 Prostate neoplasm Onset Date: ~2008 Stenosis of right subclavian artery Onset Date: ~03/2005 stented Surgical History: Surgical History (Last Reviewed 02/09/20 @ 11:12 by Dimitri Woodard RN) H/O colonoscopy Onset Date: 05/12/19 10/26/14 [facility]-negative. Recheck 10 yrs. 05/12/19 [facility]-very capacious colon. Recheck 10 yrs. H/O nasal septoplasty Onset Date: 01/10/11 [facility] H/O prostatectomy Onset Date: ~03/2009 H/O shoulder surgery Onset Date: 06/30/12 06/30/12 [place]-right repair. H/O sigmoidoscopy Onset Date: ~01/09/18 Dr. Curiel History of arthroscopic procedure on shoulder Onset Date: 05/12/12 [place]-biceps tenotomy, labral repair, sad, acrominoplasty distal clavicle excision. History of cardiac catheterization 06/20/17-right, 10/07/16-left History of cardioversion Onset Date: ~09/201605/16/11, 09/2016- Dr Vazquez History of carpal tunnel release Onset Date: 04/03/12 [place] 02/25/12-right, 04/03/12-left. History of closure of ileostomy Onset Date: 03/07/16 History of colon resection Onset Date: 01/06/16 w/colostomy History of esophagogastroduodenoscopy (EGD) Onset Date: 05/12/19 02/19/17 [facility]-clotest negative, marked reactive gastropathy. 12/29/18 [facility]-w/dilation-moderately severe gastritis. 05/12/19 [facility] [place]-clotest negative, mild chronic inactive gastritis. History of flexible sigmoidoscopy Onset Date: 03/07/16 [facility] Hx of radical excision of skin lesion Onset Date: 08/17/13 [facility] [place]-07/15/13-left [facility]-poorly diff squamous cell ca. 08/17/13 re-excised without residual malignancy. S/P triple vessel bypass Onset Date: ~2004 Status post epidural steroid injection Onset Date: 06/04/11 12/16/08, 02/28/09, 06/04/11- C5-6, C6-7 excision of sebacous cyst Onset Date: 09/29/13 [place]-mucoid cyst right long finger hemorrhoidal banding Onset Date: 10/26/14 [facility] incision and debridement Onset Date: 07/24/09 [facility]-left middle finger Family History: Family History (Last Reviewed 02/09/20 @ 11:12 by Dimitri Woodard RN) Brother Diabetes Father , age 75 Black lung Mother , age 83 Diabetes Heart disease Sister No problems noted. Social History: (Last Updated 02/09/20 @ 11:15 by Dimitri Woodard RN) Social History: Marital status: household members: spouse number of children: 2 number of children comment: 2 step 2 biological current occupational status: retired Highest education level completed: Bachelor's degree Service: No Tobacco: Smoking Status: Former smoker Alcohol: alcohol intake: current alcohol intake frequency: other Substance Use: substance use type: does not use Dietary Habits: well-balanced diet: daily or most days caffeine: No Personal Safety: do you feel safe at home: Yes victim of physical abuse: No victim of emotional abuse: No Review Of Systems (GEN) - Review of Systems Generalized/Overall Review: Present: Weakness Respiratory: Absent: Cough, Shortness of Breath Cardiac: Absent: Chest Pain Abdominal: Present: Vomiting - slight, 2 days prior Genitourinary: Present: No Symptoms Reported Musculoskeletal: Present: Back Pain Neurological: Present: Numbness - his baseline, bilateral feet Immunizations: IMMUNIZATION HX Immunizations Up to Date Yes History of Influenza Vaccine No Hx Pneumococcal Vaccination No Allergies/Adverse Reactions: Allergies Allergy/AdvReac Type Severity Reaction Status Date / Time mometasone furoate AdvReac Mild increased Verified 02/09/20 07:31 [From Nasonex] eye pressure oxycodone [From Percocet] AdvReac Mild makes him Verified 02/09/20 07:31 "looney" Home Medications: HOME MEDICATIONS Atorvastatin Calcium [Lipitor] 40 mg PO DAILY 05/15/16 [Last Taken 02/08/18 16:30] Albuterol Sulfate [Ventolin Hfa] 1 puff INHALATION Q4H PRN 12/05/18 [Last Taken Unknown] Apixaban [Eliquis] 5 mg PO BID 12/05/18 [Last Taken Unknown] Latanoprost/Pf [Latanoprost 0.005% Eye Drop] 1 drp OP BID 12/05/18 [Last Taken Unknown] furosemide 20 mg tablet 40 mg PO BID 06/17/19 [Last Taken Unknown] Umeclidinium Brm/Vilanterol Tr [Anoro Ellipta 62.5-25 Mcg INH] 1 ea INHALATION DAILY 10/22/19 [Last Taken Unknown] Acetaminophen [Tylenol] 325 mg PO Q6H PRN tab 10/23/19 [Last Taken Unknown] potassium chloride 20 mEq tablet,extended release(part/cryst) 20 meq PO TID #90 tab 10/25/19 [Last Taken Unknown] alprazolam 0.5 mg tablet 0.5 mg PO HS PRN #60 tab 02/08/20 [Last Taken Unknown] Ferrous Sulfate [Iron] 325 mg PO TID 02/09/20 [Last Taken Unknown] Metoprolol Tartrate 50 mg PO BID 02/09/20 [Last Taken Unknown] Pregabalin [Lyrica] 150 mg PO TID 02/09/20 [Last Taken Unknown] Exam - Exam Vital Signs: Vital Signs - Last Taken Temp 36.2 C 02/09/20 10:50 Pulse 73 02/09/20 11:00 Resp 12 02/09/20 11:00 BP 115/64 02/09/20 11:00 Pulse Ox 92 L 02/09/20 11:00 Constitutional: Present: Alert, Oriented x3, Cooperative, Well developed, No distress, Obese Respiratory: Present: lungs clear, decreased breath sounds Cardiovascular/Chest: Present: irregularly irregular Abdomen: Present: Normal bowel sounds, obese Extremity: Absent: lower extremity edema Eye contact: Present: cooperative, good eye contact Diagnostic Studies: Abnormal Lab Results 02/09/20 02/09/20 02/09/20 Range/Units 08:20 08:20 08:20 RBC 6.82 H (4.7-6.0) M/mm3 MCV 74.6 L (78-100) fl MCH 24.2 L (27-31) pg RDW 17.9 H (11.5-14.0) % Neutrophils % 79.7 H (42-75.0) % Lymphocytes % 7.4 L (20-51) % Monocytes % 11.6 H (0.0-9) % Lymphocytes # 0.51 L (1.5-3.5) k/mm3 PT 12.8 H (9.1-10.7) Seconds INR (Anticoag Therapy) 1.31 H (0.92-1.08) INR Sodium 124 L (132-142) mmol/L Plasma Sodium 125 L (130-142) mmol/L Potassium 2.4 L* D (3.4-4.6) mmol/L Chloride 81 L (97-106) mmol/L Carbon Dioxide 39.3 H (24-32.6) mmol/L Anion Gap 6.1 L (6.8-13.8) mmol/L BUN 27 H (6-23) mg/dL Creatinine 1.64 H (0.4-1.4) mg/dL Est GFR (Non-Af Amer) 44 L (60-130) mL/min Random Glucose 137 H (70-110) mg/dL Total Bilirubin 1.2 H (0.0-1.1) mg/dL ALT 14 L (19-67) U/L Alkaline Phosphatase 186 H (50-170) U/L Laboratory Results WBC 6.9 K/mm3 (4.0-10.5) 02/09/20 08:20 RBC 6.82 M/mm3 (4.7-6.0) H 02/09/20 08:20 Hgb 16.5 gm/dL (13.5-18.0) 02/09/20 08:20 Hct 50.9 % (42.0-52.0) 02/09/20 08:20 MCV 74.6 fl (78-100) L 02/09/20 08:20 MCH 24.2 pg (27-31) L 02/09/20 08:20 MCHC 32.4 g/dl (32-36) 02/09/20 08:20 RDW 17.9 % (11.5-14.0) H 02/09/20 08:20 Plt Count 171 K/mm3 (150-450) 02/09/20 08:20 MPV 11.1 fl (8-11.3) 02/09/20 08:20 Immature Gran % (Auto) 0.30 % (0.001-0.429) 02/09/20 08:20 Immature Gran # (Auto) 0.02 K/mm3 (0.000-0.0310) 02/09/20 08:20 Neutrophils % 79.7 % (42-75.0) H 02/09/20 08:20 Lymphocytes % 7.4 % (20-51) L 02/09/20 08:20 Monocytes % 11.6 % (0.0-9) H 02/09/20 08:20 Eosinophils % 0.7 % (0.0-3.0) 02/09/20 08:20 Basophils % 0.3 % (0.0-1.0) 02/09/20 08:20 Nucleated RBC % 0.0 k/mm3 (0-1) 02/09/20 08:20 Neutrophils # 5.5 K/mm3 (1.3-6.0) 02/09/20 08:20 Lymphocytes # 0.51 k/mm3 (1.5-3.5) L 02/09/20 08:20 Monocytes # 0.8 k/mm3 (0.0-1.0) 02/09/20 08:20 Eosinophils # 0.1 k/mm3 (0.0-0.7) 02/09/20 08:20 Absolute Basophils 0.0 k/mm3 (0.0-0.1) 02/09/20 08:20 ESR 1 mm/hr (0-10) 02/09/20 08:20 PT 12.8 Seconds (9.1-10.7) H 02/09/20 08:20 INR (Anticoag Therapy) 1.31 INR (0.92-1.08) H 02/09/20 08:20 PTT (Poly) 30.3 Seconds (24-32) 02/09/20 08:20 Sodium 124 mmol/L (132-142) L 02/09/20 08:20 Plasma Sodium 125 mmol/L (130-142) L 02/09/20 08:20 Potassium 2.4 mmol/L (3.4-4.6) L* D 02/09/20 08:20 Chloride 81 mmol/L (97-106) L 02/09/20 08:20 Carbon Dioxide 39.3 mmol/L (24-32.6) H 02/09/20 08:20 Anion Gap 6.1 mmol/L (6.8-13.8) L 02/09/20 08:20 BUN 27 mg/dL (6-23) H 02/09/20 08:20 Creatinine 1.64 mg/dL (0.4-1.4) H 02/09/20 08:20 Est GFR (Non-Af Amer) 44 mL/min (60-130) L 02/09/20 08:20 BUN/Creatinine Ratio 16.5 (9.0-21.6) 02/09/20 08:20 Random Glucose 137 mg/dL (70-110) H 02/09/20 08:20 Calcium 8.8 mg/dL (7.9-10.9) 02/09/20 08:20 Calcium Adj for Albumin 8.6 mg/dL (8.4-10.2) 02/09/20 08:20 Total Bilirubin 1.2 mg/dL (0.0-1.1) H 02/09/20 08:20 AST 23 U/L (0-48) 02/09/20 08:20 ALT 14 U/L (19-67) L 02/09/20 08:20 Alkaline Phosphatase 186 U/L (50-170) H 02/09/20 08:20 Total Protein 7.4 gm/dL (6.2-8.2) 02/09/20 08:20 Albumin 3.8 gm/dl (3.4-5.0) 02/09/20 08:20 SARS-CoV-2 (PCR) Not detected (NotDetected) 02/09/20 09:25 Assessment/Plan - Narrative Narrative: His recurrent falls are likely due to his electrolyte abnormalities. Will administer 150 cc/hr NS, his maintenance rate. Will also add 40 mEq KCl to his fluids, and recheck in the morning. Without other acute illness or recent med change, etiology is unclear. Will not change any meds. Will order PT eval for tomorrow. If the saline and 40 mEq of KCl correct his electrolyte abnormalities, he could potentially DC home tomorrow. - Assessment/Plan (1) Acute hyponatremia Assessment: Sodium was 142 on 02/03/20. Glucose today was 137, so this is not pseudohyponatremia. His GFR is 44, which is his baseline. He has been doing Nutrisystem for almost 2 months, so I do not think his diet would have caused his acute electrolyte changes. Should this persist, will obtain further studies to investigate cause of his hyponatremia. Problem: Acute (2) Hypochloremia Problem: Acute (3) Electrolyte imbalance Problem: Acute (4) Recurrent falls Problem: Acute (5) Hypokalemia Problem: Acute (6) Anxiety Problem: Chronic (7) Chronic a-fib Problem: Chronic (8) Chronic renal insufficiency, stage III (moderate) Problem: Chronic (9) Colon distention Problem: Chronic (10) RONQUILLO (dyspnea on exertion) Problem: Chronic
[2020-02-09] MEDS: POTASSIUM CHLORIDE 20 MEQ TABLET.SA PO SCH ×2 (14:22→17:46)
[2020-02-09] MEDS: PREGABALIN 75 MG CAPSULE PO SCH ×2 (14:22→17:49)
[2020-02-09] MEDS: NORMAL SALINE 1,000 ML IV PRN ×2 (14:22→21:26)
[2020-02-09] MEDS: POTASSIUM CHLORIDE IN WATER 100 ML IV SCH ×4 (14:22→17:45)
[2020-02-09] MEDS: traMADol HCL 50 MG TABLET PO PRN (16:42)
[2020-02-09] MEDS ORDERED: PREGABALIN 150 MG PO SCH (17:00)
[2020-02-09] MEDS: FORMOTEROL FUMARATE 20 MCG/2 ML VIAL IH SCH (18:13)
[2020-02-09] MEDS: ROSUVASTATIN CALCIUM 20 MG TABLET PO SCH (21:27)
[2020-02-09] MEDS: LATANOPROST 25 DROP BTL RIGHTEYE SCH (21:27)
[2020-02-09] MEDS: METOPROLOL TARTRATE 50 MG TABLET PO SCH (21:27)
[2020-02-09] MEDS: APIXABAN 5 MG TABLET PO SCH (21:27)
[2020-02-09] MEDS: ALPRAZolam 0.5 MG TABLET PO PRN (23:44)
[2020-02-10] MEDS: traMADol HCL 50 MG TABLET PO PRN (04:14)
[2020-02-10] MEDS: NORMAL SALINE 1,000 ML IV PRN ×3 (04:15→17:41)
[2020-02-10] MEDS: FORMOTEROL FUMARATE 20 MCG/2 ML VIAL IH SCH ×2 (06:05→18:18)
[2020-02-10 06:57] LABS: Albumin * 3.1 gm/dl (3.4-5.0); Anion Gap 8.5 mmol/L (6.8-13.8); BUN/Creatinine Ratio 16.9 (9.0-21.6); Bilirubin, Total 0.8 mg/dL (0.0-1.1); Ca. Corrected For Albumin 8.4 mg/dL (8.4-10.2); Carbon Dioxide 33.1 mmol/L (24-32.6); Potassium 2.6 mmol/L (3.4-4.6); Total Protein 6.2 gm/dL (6.2-8.2)
[2020-02-10] MEDS: POTASSIUM CHLORIDE IN WATER 100 ML IV SCH ×4 (08:35→11:46)
[2020-02-10] MEDS: ACETAMINOPHEN 325 MG TABLET PO PRN ×2 (08:35→16:43)
[2020-02-10] MEDS: APIXABAN 5 MG TABLET PO SCH ×2 (09:14→20:55)
[2020-02-10] MEDS: FERROUS SULFATE 325 MG TABLET PO SCH (09:14)
[2020-02-10] MEDS: FUROSEMIDE 40 MG TABLET PO SCH (09:15)
[2020-02-10] MEDS: POTASSIUM CHLORIDE 20 MEQ TABLET.SA PO SCH ×3 (09:15→16:40)
[2020-02-10] MEDS: PREGABALIN 75 MG CAPSULE PO SCH ×3 (09:15→16:40)
[2020-02-10] MEDS: LATANOPROST 25 DROP BTL RIGHTEYE SCH ×2 (09:16→20:55)
[2020-02-10] MEDS: TIOTROPIUM BROMIDE 5 CAP INHALER IH SCH (09:16)
--- NOTE | 2020-02-10 09:17 | PN ---
Subjective - Date and Time Seen Date: 02/10/20 Time: 08:30 Subjective Narrative: He feels ok if he's sitting or in bed, but is still weak and dizzy when standing. He almost fell overnight, but his nurse caught him. Denies new concerns. Objective - Review of Systems Generalized/Overall Review: Reports: Weakness Respiratory: Denies: Shortness of Breath Cardiac: Denies: Edema Abdominal: Reports: No Symptoms Reported Genitourinary Symptoms: Reports: No Symptoms Reported Musculoskeletal Complaints: Reports: Neck Pain Neurological: Reports: Numbness Skin: Reports: Other - abrasions from his falls - Vitals Vitals: Last Vital Signs Temp 36.4 C 02/10/20 06:32 Pulse 64 02/10/20 06:32 Resp 16 02/10/20 06:32 BP 125/57 02/10/20 06:32 Pulse Ox 94 02/10/20 06:32 - Abnormal Lab Findings Abnormal Lab Findings: Abnormal Lab Results 02/10/20 Range/Units 06:05 Sodium 126 L (132-142) mmol/L Plasma Sodium 126 L (130-142) mmol/L Potassium 2.6 L (3.4-4.6) mmol/L Chloride 87 L (97-106) mmol/L Carbon Dioxide 33.1 H (24-32.6) mmol/L Est GFR (Non-Af Amer) 57 L D (60-130) mL/min ALT 12 L (19-67) U/L Albumin 3.1 L (3.4-5.0) gm/dl - Exam Constitutional: Present: Alert, Cooperative, No distress Respiratory: Present: no accessory muscle use, decreased breath sounds Cardiovascular/Chest: Present: irregularly irregular Abdomen: Present: obese Extremity: Absent: lower extremity edema Skin Exam: Present: other - abrasions to his nose and right frontoparietal region Eye contact: Present: cooperative, good eye contact Assessment/Plan Plan Narrative: Potassium and sodium are still low after overnight replacement. K+ is 2.6 and Na+ is 126. Will continue IV normal saline, and administer an additional 40 mEq Kcl, and recheck this afternoon. Will also check magnesium and phosphorus levels. Suspect his baseline poor renal function is the source of his electrolyte abnormalities. Anticipate he will need an additional night of IV electrolyte replacement. PT eval pending, for his multiple recent falls, though his electrolyte abnormalities are the likely source. - Problems/Diagnosis (1) Acute hyponatremia Problem: Acute (2) Hypochloremia Problem: Acute (3) Electrolyte imbalance Problem: Acute (4) Recurrent falls Problem: Acute (5) Hypokalemia Problem: Acute (6) Anxiety Problem: Chronic (7) Chronic a-fib Problem: Chronic (8) Chronic renal insufficiency, stage III (moderate) Problem: Chronic (9) Colon distention Problem: Chronic (10) RONQUILLO (dyspnea on exertion) Problem: Chronic
[2020-02-10] MEDS: METOPROLOL TARTRATE 50 MG TABLET PO SCH (09:23)
[2020-02-10 09:30] LABS: Magnesium 2.3 mg/dL (1.2-2.8); Phosphorus 2.6 mg/dL (2.2-4.2)
[2020-02-10] MEDS: METOPROLOL TARTRATE 25 MG TABLET PO SCH ×2 (09:51→20:55)
[2020-02-10 15:41] LABS: Albumin * 3.1 gm/dl (3.4-5.0); Anion Gap 7.1 mmol/L (6.8-13.8); BUN/Creatinine Ratio 16.7 (9.0-21.6); Bilirubin, Total 0.7 mg/dL (0.0-1.1); Ca. Corrected For Albumin 8.4 mg/dL (8.4-10.2); Carbon Dioxide 33.1 mmol/L (24-32.6); Potassium 3.2 mmol/L (3.4-4.6); Total Protein 6.3 gm/dL (6.2-8.2)
[2020-02-10] MEDS ORDERED: POTASSIUM BICARBONATE/CIT AC 25 MEQ TABLET.EFF PO ONE (17:09)
[2020-02-10] MEDS: ALPRAZolam 0.5 MG TABLET PO PRN (20:55)
[2020-02-10] MEDS: ROSUVASTATIN CALCIUM 20 MG TABLET PO SCH (20:55)
[2020-02-11] MEDS: NORMAL SALINE 1,000 ML IV PRN ×2 (00:27→07:33)
[2020-02-11] MEDS: ACETAMINOPHEN 325 MG TABLET PO PRN (04:28)
[2020-02-11] MEDS: FORMOTEROL FUMARATE 20 MCG/2 ML VIAL IH SCH (06:06)
[2020-02-11 07:50] LABS: Anion Gap 7.1 mmol/L (6.8-13.8); BUN/Creatinine Ratio 13.6 (9.0-21.6); Bilirubin, Total 0.5 mg/dL (0.0-1.1); Ca. Corrected For Albumin 8.7 mg/dL (8.4-10.2); Calcium * 8.2 mg/dL (7.9-10.9); Carbon Dioxide 31.7 mmol/L (24-32.6); Potassium 2.8 mmol/L (3.4-4.6)
[2020-02-11] MEDS ORDERED: POTASSIUM BICARBONATE/CIT AC 25 MEQ TABLET.EFF PO ONE (08:06)
[2020-02-11] MEDS: POTASSIUM CHLORIDE 20 MEQ TABLET.SA PO SCH ×2 (08:44→13:10)
[2020-02-11] MEDS: POTASSIUM CHLORIDE IN WATER 100 ML IV SCH ×4 (08:44→11:38)
[2020-02-11] MEDS: FERROUS SULFATE 325 MG TABLET PO SCH (08:44)
[2020-02-11] MEDS: APIXABAN 5 MG TABLET PO SCH (08:46)
[2020-02-11] MEDS: FUROSEMIDE 40 MG TABLET PO SCH (08:47)
[2020-02-11] MEDS: METOPROLOL TARTRATE 25 MG TABLET PO SCH (08:47)
[2020-02-11] MEDS: TIOTROPIUM BROMIDE 5 CAP INHALER IH SCH (08:48)
[2020-02-11] MEDS: LATANOPROST 25 DROP BTL RIGHTEYE SCH (08:49)
[2020-02-11] MEDS: PREGABALIN 75 MG CAPSULE PO SCH ×2 (08:51→13:09)
[2020-02-11] MEDS ORDERED: NORMAL SALINE 250 ML IV ONE ×2 (11:11)
[2020-02-11 13:45] LABS: Albumin * 3.3 gm/dl (3.4-5.0); Anion Gap 9.6 mmol/L (6.8-13.8); BUN/Creatinine Ratio 12.2 (9.0-21.6); Bilirubin, Total 0.6 mg/dL (0.0-1.1); Ca. Corrected For Albumin 8.7 mg/dL (8.4-10.2); Calcium * 8.5 mg/dL (7.9-10.9); Carbon Dioxide 31.7 mmol/L (24-32.6); Potassium 3.3 mmol/L (3.4-4.6); Total Protein 6.9 gm/dL (6.2-8.2)
--- NOTE | 2020-02-11 14:20 | DS ---
(1) Acute hyponatremia Problem: Resolved (2) Hypochloremia Problem: Resolved (3) Electrolyte imbalance Problem: Resolved (4) Recurrent falls Problem: Acute (5) Hypokalemia Problem: Resolved (6) Anxiety Problem: Chronic (7) Chronic a-fib Problem: Chronic (8) Chronic renal insufficiency, stage III (moderate) Problem: Chronic (9) Colon distention Problem: Chronic (10) RONQUILLO (dyspnea on exertion) Problem: Chronic Date of Discharge:: 02/11/20 Hospital Course: Patient is brought in by EMS after falling multiple times at home. EMS report stated patient fell around 11 times. Patient states that he fell 5 times altogether, 4 yesterday and once today. Patient does not have any idea why he keeps falling. EMS also reported that his blood glucose was 63 so they gave him glucose in the ambulance. In the ED, he was found to have hypokalemia with K+ of 2.4, hyponatremia with Na+ of 124, and hypochloremia with Cl- of 81. He was given IV replacement potassium and sodium, with improvement in his labs over his 2-day stay. He had some hypotension, and his home metoprolol dose was reduced to 12.5. This electrolyte imbalance was felt to be secondary to his poor renal function. His home potassium replacement dose was increased to 40 mEq 3 times daily. Recommend he see his jacquard card cutter soon after discharge. Will repeat labs with me early next week. Procedures Performed: none Results and Findings: Lab Pending Results 02/09/20 08:20: WBC 6.9, RBC 6.82 H, Hgb 16.5, Hct 50.9, MCV 74.6 L, MCH 24.2 L, MCHC 32.4, RDW 17.9 H, Plt Count 171, MPV 11.1, Immature Gran % (Auto) 0.30, Immature Gran # (Auto) 0.02, Neutrophils % 79.7 H, Lymphocytes % 7.4 L, Monocytes % 11.6 H, Eosinophils % 0.7, Basophils % 0.3, Nucleated RBC % 0.0, Neutrophils # 5.5, Lymphocytes # 0.51 L, Monocytes # 0.8, Eosinophils # 0.1, Absolute Basophils 0.0 02/09/20 08:20: ESR 1 02/09/20 08:20: PT 12.8 H, INR (Anticoag Therapy) 1.31 H, PTT (Smith) 30.3 02/09/20 08:20: Sodium 124 L, Plasma Sodium 125 L, Potassium 2.4 L* D, Chloride 81 L, Carbon Dioxide 39.3 H, Anion Gap 6.1 L, BUN 27 H, Creatinine 1.64 H, Est GFR (Non-Af Amer) 44 L, BUN/Creatinine Ratio 16.5, Random Glucose 137 H, Calcium 8.8, Calcium Adj for Albumin 8.6, Total Bilirubin 1.2 H, AST 23, ALT 14 L, Alkaline Phosphatase 186 H, Total Protein 7.4, Albumin 3.8 02/09/20 09:25: SARS-CoV-2 (PCR) Not detected 02/10/20 06:05: Sodium 126 L, Plasma Sodium 126 L, Potassium 2.6 L, Chloride 87 L, Carbon Dioxide 33.1 H, Anion Gap 8.5, BUN 22, Creatinine 1.30, Est GFR (Non- Af Amer) 57 L D, BUN/Creatinine Ratio 16.9, Random Glucose 98, Calcium 8.0, Calcium Adj for Albumin 8.4, Total Bilirubin 0.8, AST 18, ALT 12 L, Alkaline Phosphatase 155, Total Protein 6.2, Albumin 3.1 L 02/10/20 08:45: Phosphorus 2.6 D, Magnesium 2.3 02/10/20 15:00: Sodium 129 L, Plasma Sodium 129 L, Potassium 3.2 L D, Chloride 92 L, Carbon Dioxide 33.1 H, Anion Gap 7.1, BUN 22, Creatinine 1.32, Est GFR (Non-Af Amer) 56 L, BUN/Creatinine Ratio 16.7, Random Glucose 102, Calcium 8.0, Calcium Adj for Albumin 8.4, Total Bilirubin 0.7, AST 19, ALT 13 L, Alkaline Phosphatase 160, Total Protein 6.3, Albumin 3.1 L 02/11/20 07:10: Sodium 135, Plasma Sodium 135, Potassium 2.8 L, Chloride 99, Carbon Dioxide 31.7, Anion Gap 7.1, BUN 18, Creatinine 1.32, Est GFR (Non-Af Amer) 56 L, BUN/Creatinine Ratio 13.6, Random Glucose 108, Calcium 8.2, Calcium Adj for Albumin 8.7, Total Bilirubin 0.5, AST 20, ALT 11 L, Alkaline Phosphatase 145, Total Protein 6.0 L, Albumin 3.0 L 02/11/20 13:29: Sodium 138, Plasma Sodium 138, Potassium 3.3 L, Chloride 100, Carbon Dioxide 31.7, Anion Gap 9.6, BUN 16, Creatinine 1.31, Est GFR (Non-Af Amer) 57 L, BUN/Creatinine Ratio 12.2, Random Glucose 91, Calcium 8.5, Calcium Adj for Albumin 8.7, Total Bilirubin 0.6, AST 22, ALT 17 L, Alkaline Phosphatase 164, Total Protein 6.9, Albumin 3.3 L Discharge Location: Home Disposition: Home self-care Condition: Good Discharge Activity: Activity as tolerated Discharge Diet: General/regular food Referrals: Seema Jackson DO [Primary Care Provider] - 02/14/20 Peter Denson MD [Non Staff Physicians] - One Week Prescriptions (Any new or edited meds): Potassium Chloride [K-Dur] 40 meq PO TID #120 tablet.sa Transmission Status: Pending to [facility] Metoprolol Tartrate [Lopressor] 12.5 mg PO BID #60 tab Transmission Status: Pending to [facility] Complete Home Medications List: Complete Home Medication List: Atorvastatin Calcium [Lipitor] 40 mg PO DAILY 05/15/16 Albuterol Sulfate [Ventolin Hfa] 1 puff INHALATION Q4H PRN 12/05/18 Apixaban [Eliquis] 5 mg PO BID 12/05/18 Latanoprost/Pf [Latanoprost 0.005% Eye Drop] 1 drp OP BID 12/05/18 furosemide 20 mg tablet 40 mg PO BID 06/17/19 Umeclidinium Brm/Vilanterol Tr [Anoro Ellipta 62.5-25 Mcg INH] 1 ea INHALATION DAILY 10/22/19 Acetaminophen [Tylenol] 325 mg PO Q6H PRN tab 10/23/19 alprazolam 0.5 mg tablet 0.5 mg PO HS PRN #60 tab 02/08/20 Ferrous Sulfate [Iron] 325 mg PO TID 02/09/20 Pregabalin [Lyrica] 150 mg PO TID 02/09/20 Metoprolol Tartrate [Lopressor] 12.5 mg PO BID #60 tab 02/11/20 Potassium Chloride [K-Dur] 40 meq PO TID #120 tablet.sa 02/11/20 Pregabalin [Lyrica] 150 mg PO TID cap 02/11/20 Forms: Patient Portal Registration
[2020-02-11 15:21] VITALS: BP 100/44
[2020-02-11] MEDS ORDERED: METOPROLOL TARTRATE 25 MG TABLET PO SCH (21:00)
== END 2020-02-11 15:03 | disposition home or self-care (01) | DRG 641 ==
LOC: ER 07:29 → MS 10:41
PROVIDERS: ADMIT Family Medicine; ATTEND Family Medicine
DX: F41.9 Anxiety disorder, unspecified; K63.89 Other specified diseases of intestine; E87.6 Hypokalemia; R29.6 Repeated falls; E87.8 Other disorders of electrolyte and fluid balance, not elsewhere classified; E87.1 Hypo-osmolality and hyponatremia; I48.20 Chronic atrial fibrillation, unspecified; Z91.81 History of falling; N18.30 Chronic kidney disease, stage 3 unspecified